=== PATIENT | female | born 1995 | race Caucasian/White ===

== ENCOUNTER 2023-05-22 07:57 | Outpatient (AMB) | payer OTHER, SELFPAY ==
--- NOTE | 2023-05-22 07:59 | MHC.OFFVIS ---
Intake Vital Signs 05/22/23 08:00 Weight 166 lb 6 oz BP 102/72 Blood Pressure Location Rt brachial Position Sitting Pulse 94 Pulse Source Pulse Oximeter Pulse Oximetry (%) 98 Oxygen Delivery Method Room Air Intake Visit Reasons: NPV: Syncope to R/O seizures-CONFIRMED Intake Note: Pt presents as a NPV for Syncope r/o seizures. New Car Inspector Required: No Accompanied by: Mother Allergies cat dander Allergy (Unknown, Verified 05/22/23 08:05) Unknown diphenhydramine [From Benadryl] Allergy (Unknown, Verified 05/22/23 08:05) Unknown Seasonal Allergies Allergy (Unknown, Verified 05/22/23 08:05) Unknown hay Allergy (Unknown, Uncoded 05/22/23 08:05) Unknown HPI HPI Comments History of Present Illness Details 27y/o female with Tourettes comes for evaluation of episodes of passing out. About 4 months ago she started having episodes of dizziness , episodes of passing out. it starts with feeling lightheaded, feels like her legs are giving out,feels warm , occasional palpitations and passes out.Her mother has witnessed a few episodes, says she becomes unresponsive and falls over . It can lasts seconds to few minutes. she is usually groggy and has headaches .No episodes of abnormal movements. she has 3-4 per week .In the beginning he was having multiple episodes a day.It is usually when she is standing or waking. Physical activity worsens it .she was diagnosed with Tourettes in her teens and has been seeing a psychiatrist since then . her motor TICS are poorly controlled. she is seeing a aircraft engine dismantler and was told she has orthostatic hypotension.she recently had 30 day monitor - has follow up. She also has chronic headaches- frontal pressure , bitemporal , photophobia phonophobia, nausea. she takes iibuprofen for severe headaches. she has 4-5 /week . she denies any aura. [facility] Medical History (Updated 05/22/23 @ 09:03 by Francoise Hoyos MD) Allergies Anxiety Borderline personality disorder Chronic migraine without aura Depression OCD (obsessive compulsive disorder) Panic attacks PTSD (post-traumatic stress disorder) Syncope Tourettes disease Family History Mother Breast cancer Maternal Grandfather Asthma Cancer Paternal Grandmother Cancer Father Hypertension Social History Alcohol intake: former Patient Tobacco Use Status: Former Tobacco user e-Cigarette/Vaping Use: Currently Using Review of Systems Const Reports fatigue, Reports headache(s) and Reports malaise ENT Reports dizziness and Reports headache(s) Neuro Reports dizziness and Reports headache(s) Psych Reports anxiety and Reports depression Endo Reports fatigue Physical Exam Vital Signs: Last Vital Signs Pulse 94 05/22/23 08:00 BP 102/72 05/22/23 08:00 Pulse Ox 98 05/22/23 08:00 Oxygen Delivery Method Room Air 05/22/23 08:00 Const General: cooperative, healthy appearing, comfortable and no acute distress Nutritional Appearance: average body habitus Orientation/consciousness: patient oriented x3 Eyes Pupils: Equal, round and reactive pupils present Neuro Other: motor TICS- frequent eye blinking , shoulder shrugging General: patient oriented x3, tone normal, moves all extremities and no focal motor deficits Cranial nerves: Yes Facial sensation intact/muscles of mastication intact, Yes Equal, round and reactive pupils present, Yes Bilaterally intact EOM present, Yes Nystagmus not present, Yes Normal facial strength present, Yes Midline tongue present and Yes Symmetric palate elevation present Cognition (Neuro): normal cognition Gait exam (Neuro): Normal gait present Motor exam (neuro): 5/5 motor strength present throughout and Normal motor muscle tone present throughout Deep tendon reflexes (DTR's): Right triceps reflex intensity grade: 2+, Left triceps reflex intensity grade: 2+, Rt Biceps (C5, C6): 2+, Left biceps reflex intensity grade: 2+, Right brachioradialis reflex intensity grade: 2+, Left brachioradialis reflex intensity grade: 2+, Right patellar reflex intensity grade: 2+ and Left patellar reflex intensity grade: 2+ Coordination: [id number] test normal Assessment & Plan Assessment & Plan (1) Syncope: Code(s): R55 - Syncope and collapse (2) Tourettes disease: Code(s): F95.2 - Tourette's disorder (3) Chronic migraine without aura: Code(s): G43.709 - Chronic migraine without aura, not intractable, without status migrainosus Plan I will evaluate her with MRI brain and EEG Continue risperdal 1mg qd and topirmata e100mg qhs for now. Orders: Orders MR head/brain wo con Today F95.2 - Tourette's disorder, R55 - Syncope and collapse EEG awake and asleep Today F95.2 - Tourette's disorder, R55 - Syncope and collapse Coding Level of Care Code New Pt Level 4 (79511) Diagnoses Syncope R55 Tourettes disease F95.2 Chronic migraine without aura G43.709
[2023-05-22 08:00] VITALS: BP 102/72; PULSE 94; O2SAT 98
== END 2023-05-22 08:38 | disposition home or self-care (01) ==
PROVIDERS: Visit Provider Psychiatry & Neurology Neurology
DX: R55 Syncope and collapse (principal); F95.2 Tourette's disorder; G43.709 Chronic migraine without aura, not intractable, without status migrainosus
CPT/HCPCS: 99204

== ENCOUNTER → 2023-05-22 07:57 | Outpatient (BNVA) | payer OTHER, SELFPAY | PROVIDERS: Visit Provider Psychiatry & Neurology Neurology | DX: R55 Syncope and collapse (principal); G43.709 Chronic migraine without aura, not intractable, without status migrainosus; F95.2 Tourette's disorder | CPT/HCPCS: 99202 ==

== ENCOUNTER 2023-07-11 10:20 | Outpatient (REF) | payer OTHER, SELFPAY ==
--- NOTE | ~2023-07-11 | MR_ITS ---
EXAMINATION: MR BRAIN WITHOUT CONTRAST CLINICAL INFORMATION: Syncope. COMPARISON: None available. TECHNIQUE: Multiplanar, multisequence imaging of the brain was performed without contrast. FINDINGS: No diffusion abnormalities are identified to suggest an acute or subacute infarct. The ventricles are normal in size. No mass effect or midline shift is seen. No brain parenchymal signal abnormality is noted. No extra-axial fluid collections are seen. The brainstem and cerebellum are normal. The gradient refocused acquisition is normal. The craniovertebral junction, marrow signal, and midline structures are normal. The major intracranial flow voids at the level of the [place] of [place] are preserved. The dural venous sinus flow voids are maintained. The mastoid air cells are well aerated. Small submucosal retention cyst noted along the roof of the nasopharynx to the left of midline. There is severe mucosal thickening with scattered fluid levels and aerosolized secretions in the left frontoethmoid sinuses anteriorly with complete mucosal opacification of the left maxillary sinus as well. Chronic mucoperiosteal thickening suspected in the left maxillary antrum. The remaining paranasal sinuses are well aerated. MR/MR head/brain wo con IMPRESSION: Normal MRI of the brain. No acute process. Severe left-sided ostiomeatal complex pattern of sinus disease with suspected chronic left maxillary mucoperiosteal thickening. It is indeterminate as to whether findings are due to an obstructing lesion in the left middle meatus or possibly due to an underlying odontogenic etiology. A CT scan of the paranasal sinuses is recommended in followup. Additionally, recommend ENT consultation to guide further management.
== END 2023-07-11 10:21 | disposition home or self-care (01) ==
LOC: HO.MRI 10:20
PROVIDERS: PCP Internal Medicine; Visit Provider Psychiatry & Neurology Neurology
DX: R55 Syncope and collapse (principal); F95.2 Tourette's disorder
CPT/HCPCS: 70551

== ENCOUNTER 2023-08-18 14:23 | Outpatient (AMB) | payer OTHER, SELFPAY ==
--- NOTE | 2023-08-18 14:33 | A.OFFVIS_ITS ---
Intake Vital Signs 08/18/23 14:40 Height 5 ft 5 in Weight 172 lb BMI 28.6 BP 96/70 Pulse 97 Pulse Oximetry (%) 98 Oxygen Delivery Method Room Air Intake Visit Reasons: 3m follow up Syncope to R/O seizures-LVM Extruding Machine Operator Required: No Accompanied by: Mother Allergies cat dander Allergy (Unknown, Verified 08/18/23 14:38) Unknown diphenhydramine [From Benadryl] Allergy (Unknown, Verified 08/18/23 14:38) Unknown Seasonal Allergies Allergy (Unknown, Verified 08/18/23 14:38) Unknown hay Allergy (Unknown, Uncoded 05/22/23 08:05) Unknown HPI HPI Comments History of Present Illness Details 28 y/o female with Tourettes comes for f ollow up of episodes of passing out. Brain MRI result was normal brain MRI. Pt reports the passing out episodes happens with feeling lightheaded,warm and leg weakness, her legs are giving out. Her mother has witnessed a few episodes, says she becomes unresponsive and falls over. It can happened multiple times a week, and it lasts seconds to few minutes. No episodes of abnormal movements. It is usually when she is standing or waking. Physical activity worsens it. She was diagnosed with Tourettes in her teens and has been seeing a psychiatrist since then. Pt was evaluated by home visitor and was told she has orthostatic hypotension. She recently had 30 day monitor, was told that no abnormal heart rhythm. EEG is pending, scheduled on . [facility] Medical History (Updated 05/22/23 @ 09:03 by Francoise Hoyos MD) Chronic migraine without aura Syncope Tourettes disease Anxiety Depression Panic attacks Allergies PTSD (post-traumatic stress disorder) OCD (obsessive compulsive disorder) Borderline personality disorder Family History Mother Breast cancer Maternal Grandfather Asthma Cancer Paternal Grandmother Cancer Father Hypertension Social History Alcohol intake: former Patient Tobacco Use Status: Former Tobacco user e-Cigarette/Vaping Use: Currently Using Review of Systems Const All systems reviewed & are unremarkable except as noted in HPI and below Physical Exam Vital Signs: Last Vital Signs Pulse 97 08/18/23 14:40 BP 96/70 11/17/23 14:40 Pulse Ox 98 08/18/23 14:40 Oxygen Delivery Method Room Air 08/18/23 14:40 BMI result Body Mass Index 28.6 Const General: cooperative, healthy appearing, comfortable and no acute distress Nutritional Appearance: average body habitus Orientation/consciousness: patient oriented x3 Eyes Pupils: Equal, round and reactive pupils present Neuro Other: motor TICS- frequent eye blinking , shoulder shrugging General: patient oriented x3, tone normal, moves all extremities and no focal motor deficits Cranial nerves: Yes Facial sensation intact/muscles of mastication intact, Yes Equal, round and reactive pupils present, Yes Bilaterally intact EOM present, Yes Nystagmus not present, Yes Normal facial strength present, Yes Midline tongue present and Yes Symmetric palate elevation present Cognition (Neuro): normal cognition Gait exam (Neuro): Normal gait present Motor exam (neuro): 5/5 motor strength present throughout and Normal motor muscle tone present throughout Deep tendon reflexes (DTR's): Right triceps reflex intensity grade: 2+, Left triceps reflex intensity grade: 2+, Rt Biceps (C5, C6): 2+, Left biceps reflex intensity grade: 2+, Right brachioradialis reflex intensity grade: 2+, Left brachioradialis reflex intensity grade: 2+, Right patellar reflex intensity grade: 2+ and Left patellar reflex intensity grade: 2+ Coordination: [id number]-[id number] test normal Assessment & Plan Assessment & Plan (1) Syncope: Code(s): R55 - Syncope and collapse (2) Tourettes disease: Code(s): F95.2 - Tourette's disorder (3) Chronic migraine without aura: Code(s): G43.709 - Chronic migraine without aura, not intractable, without status migrainosus Plan Advised patient to start keppra 250 mg BID, and monitor the syncope episodes. Continue risperdal 1mg qd and topirmata 100mg qhs. Advised patient to undergo EEG and will f/u of the result. Medications: New levetiracetam (Keppra) 250 mg PO BID 30 days 60 tabs 1RF Coding Level of Care Code Est Pt Level 3 (46715) Diagnoses Syncope R55 Tourettes disease F95.2 Chronic migraine without aura G43.709
[2023-08-18 14:40] VITALS: BP 96/70; PULSE 97; O2SAT 98; BMI 28.6
== END 2023-08-18 15:02 | disposition home or self-care (01) ==
PROVIDERS: PCP Internal Medicine; Visit Provider Nurse Practitioner Family
DX: R55 Syncope and collapse (principal); F95.2 Tourette's disorder; G43.709 Chronic migraine without aura, not intractable, without status migrainosus
CPT/HCPCS: 99213

== ENCOUNTER → 2023-08-18 14:23 | Outpatient (BNVA) | payer OTHER, SELFPAY | PROVIDERS: PCP Internal Medicine; Visit Provider Nurse Practitioner Family | DX: R55 Syncope and collapse (principal); F95.2 Tourette's disorder; G43.709 Chronic migraine without aura, not intractable, without status migrainosus | CPT/HCPCS: 99212 ==

== ENCOUNTER 2023-09-12 14:24 | Outpatient (REF) | payer OTHER, SELFPAY ==
--- NOTE | 2023-09-12 14:36 | EEG_ITS ---
This is a 16 channel EEG with an EKG lead. The patient is reported alert and awake during the tracing. Background EEG rhythm is low amplitude fast with no obvious asymmetry or paroxysmal tendency. Photic stimulation does not produce any significant abnormality. Hyperventilation is attempted for a minute with no significant abnormality. Cardiac lead does not reveal any significant abnormality. No definite sharp wave spikes or paroxysmal tendency noted. Some lead and muscle artifacts are noted. IMPRESSION: Unremarkable EEG. MD EDWARD Woodward/RANDELL / [id number]
== END 2023-09-12 14:25 | disposition home or self-care (01) ==
LOC: HO.NEURO 14:24
PROVIDERS: PCP Internal Medicine; Visit Provider Psychiatry & Neurology Neurology
DX: R55 Syncope and collapse (principal); F95.2 Tourette's disorder
CPT/HCPCS: 95816

== ENCOUNTER 2023-10-16 14:46 | Outpatient (AMB) | payer OTHER, SELFPAY ==
--- NOTE | 2023-10-16 14:51 | MHC.OFFVIS ---
Intake Vital Signs 10/16/23 15:15 Height 5 ft 5 in Weight 177 lb 8 oz BMI 29.5 BP 115/70 Blood Pressure Location Rt brachial Position Sitting Pulse 98 Pulse Oximetry (%) 97 Oxygen Delivery Method Room Air Intake Visit Reasons: 2 mnts f/u for syncope-Confirmed Intake Note: Patient presents for two month F/U syncope. EEG results and talk about medication Allergies cat dander Allergy (Unknown, Verified 10/16/23 15:17) Unknown diphenhydramine [From Benadryl] Allergy (Unknown, Verified 10/16/23 15:17) Unknown Seasonal Allergies Allergy (Unknown, Verified 10/16/23 15:17) Unknown hay Allergy (Unknown, Uncoded 05/22/23 08:05) Unknown HPI HPI Comments History of Present Illness Details 28 y/o female with Tourettes comes for follow up of episodes of passing out. No more episodes of black out since she started keppra 250 BID, but can have spacing out sometimes. She still getting dizzy spells when she does exercise. Pt was evaluated by tube machine operator helper and was told she has orthostatic hypotension. She recently had 30 day monitor, was told that no abnormal heart rhythm. Brain MRI result was normal brain MRI. Pt reports the passing out episodes happens with feeling lightheaded,warm and leg weakness, her legs are giving out. Her mother has witnessed a few episodes, says she becomes unresponsive and falls over. It can happened multiple times a week, and it lasts seconds to few minutes. No episodes of abnormal movements. EEG result was unremarkable. [facility] Medical History (Updated 08/23/23 @ 15:08 by Kyler Malhotra CNP) Chronic migraine without aura Syncope Tourettes disease Anxiety Depression Panic attacks Allergies PTSD (post-traumatic stress disorder) OCD (obsessive compulsive disorder) Borderline personality disorder Family History Mother Breast cancer Maternal Grandfather Asthma Cancer Paternal Grandmother Cancer Father Hypertension Social History Alcohol intake: former Patient Tobacco Use Status: Former Tobacco user e-Cigarette/Vaping Use: Currently Using Review of Systems Const All systems reviewed & are unremarkable except as noted in HPI and below Physical Exam Vital Signs: Last Vital Signs Pulse 98 10/16/23 15:15 BP 115/70 10/16/23 15:15 Pulse Ox 97 10/16/23 15:15 Oxygen Delivery Method Room Air 10/16/23 15:15 BMI result Body Mass Index 29.5 Const General: cooperative, healthy appearing, comfortable and no acute distress Nutritional Appearance: average body habitus Orientation/consciousness: patient oriented x3 Eyes Pupils: Equal, round and reactive pupils present Neuro Other: motor TICS- frequent eye blinking , shoulder shrugging General: patient oriented x3, tone normal, moves all extremities and no focal motor deficits Cranial nerves: Yes Facial sensation intact/muscles of mastication intact, Yes Equal, round and reactive pupils present, Yes Bilaterally intact EOM present, Yes Nystagmus not present, Yes Normal facial strength present, Yes Midline tongue present and Yes Symmetric palate elevation present Cognition (Neuro): normal cognition Gait exam (Neuro): Normal gait present Motor exam (neuro): 5/5 motor strength present throughout and Normal motor muscle tone present throughout Deep tendon reflexes (DTR's): Right triceps reflex intensity grade: 2+, Left triceps reflex intensity grade: 2+, Rt Biceps (C5, C6): 2+, Left biceps reflex intensity grade: 2+, Right brachioradialis reflex intensity grade: 2+, Left brachioradialis reflex intensity grade: 2+, Right patellar reflex intensity grade: 2+ and Left patellar reflex intensity grade: 2+ Coordination: [id number] test normal Assessment & Plan Assessment & Plan (1) Syncope: Code(s): R55 - Syncope and collapse (2) Tourettes disease: Code(s): F95.2 - Tourette's disorder (3) Chronic migraine without aura: Code(s): G43.709 - Chronic migraine without aura, not intractable, without status migrainosus Plan Advised patient to increase keppra 500 mg BID, and monitor the syncope or spacing out episodes. Continue risperdal 1mg qd and topirmata 100mg qhs. Continue to monitor the migraine frequency and intensity. Medications: New levetiracetam (Keppra) 500 mg PO BID 30 days 60 tabs 2RF Discontinued levetiracetam (Keppra) Discontinued Reason: Doctor's Order 250 mg PO BID 30 days 60 tabs 1RF Coding Level of Care Code Est Pt Level 4 (81842) Diagnoses Syncope R55 Tourettes disease F95.2 Chronic migraine without aura G43.708
[2023-10-16 15:15] VITALS: BP 115/70; PULSE 98; O2SAT 97; BMI 29.5
== END 2023-10-16 15:47 | disposition home or self-care (01) ==
PROVIDERS: PCP Internal Medicine; Visit Provider Nurse Practitioner Family
DX: R55 Syncope and collapse (principal); F95.2 Tourette's disorder; G43.709 Chronic migraine without aura, not intractable, without status migrainosus
CPT/HCPCS: 99214

== ENCOUNTER → 2023-10-16 14:46 | Outpatient (BNVA) | payer OTHER, SELFPAY | PROVIDERS: PCP Internal Medicine; Visit Provider Nurse Practitioner Family | DX: R55 Syncope and collapse (principal); F95.2 Tourette's disorder; G43.709 Chronic migraine without aura, not intractable, without status migrainosus | CPT/HCPCS: 99212 ==

== ENCOUNTER 2023-12-25 15:19 | Outpatient (REF) | payer OTHER, SELFPAY ==
--- NOTE | ~2023-12-25 | CT_ITS ---
EXAMINATION: CT SINUS WITH CONTRAST CLINICAL INFORMATION: Suspected left maxillary sinus disease on previous MRI of the brain. COMPARISON: 07/11/2023 MRI. TECHNIQUE: Volumetric CT imaging of the paranasal sinuses was done utilizing the intravenous administration of 85 mL of Omnipaque [address] examination was performed using dose optimization techniques as appropriate, variously including the following: *Automated exposure control *Adjustment of mA and/or kV according to patient size (this includes techniques or standardized protocols for targeted exams where dose is matched to indication/reason for exam; i.e. extremities or head) *Use of iterative reconstruction technique DLP: 97 mGy-cm. FINDINGS: NASAL CAVITY: Mild sigmoid nasal septal deviation to the right is noted, with a spur on the right, at the level of the middle meatus and inferior turbinate. There is deviation to the left more anterosuperiorly at the osteocartilaginous junction. The olfactory recesses are clear. There is soft tissue opacity in the region of the left hiatus semilunaris, which is nonspecific. No discrete nasal cavity masses. The visualized nasopharyngeal soft tissues demonstrate no abnormal enhancement. There is slightly asymmetric soft tissue density on the left side of the posterior nasopharynx, possibly reflecting an underlying retention cyst or Tornwaldt cyst. Correlate with direct visualization. MAXILLARY SINUSES: There is irregular thickening of the [place] of the left maxillary sinus, which is completely opacified and contains curvilinear foci of relative hyperdensity within it, suggesting inspissated, trapped secretions. There is some degree of osteoneogenesis at the periphery of the sinus cavity, consistent with chronic inflammatory disease. There is periapical radiolucency surrounding two adjacent left maxillary tooth roots, but there is no communication between this lucency and the floor of the left maxillary sinus. Correlate with dental examination. There are also carious changes involving the left last maxillary and mandibular molars and also involving the 2nd and 3rd right maxillary and mandibular molars. The right maxillary sinus is clear with a patent right OMC. The left OMC is occluded. ETHMOID SINUSES: There is some mucosal thickening within the anterior left ethmoid complex which is partially opacified, consistent with a left OMC pattern of disease. Remainder of the ethmoid complex is largely clear with intact orbital michael and fovea ethmoidalis. FRONTAL SINUSES: Minor mucosal thickening in the left frontal sinus, with patent drainage. Right frontal sinus is largely clear with patent drainage. SPHENOID SINUS: Well-pneumatized and clear with bilaterally patent sphenoid ostia and sphenoethmoidal recesses. Carotid canals are covered by bone. ADDITIONAL FINDINGS: Limited assessment of the included intracranial structures demonstrates no acute process. The orbital soft tissues appear bilaterally symmetric and grossly unremarkable. There are small, normal-sized bilateral IJ chain lymph nodes at the suprahyoid level. The visualized calvarium is intact. The mastoids and middle ear cavities are unopacified. CT/CT sinus w IV con IMPRESSION: 1. Findings on the left are consistent with chronic left maxillary sinus inflammatory disease with a left OMC pattern of disease. There is periapical radiolucency surrounding left maxillary tooth roots, but there is no communication between this lucency and the floor of the left maxillary sinus. Correlate with dental examination. 2. Mild mucosal thickening in the left frontal sinus and anterior left ethmoid complex, with a left OMC pattern of disease. Asymmetric soft tissue density in the region of the left hiatus semilunaris. Correlate with direct visualization. 3. Nasal septal deviation. 4. Asymmetric soft tissue density in the left side of the posterior nasopharynx, possibly reflecting an underlying retention cyst or Tornwaldt cyst. Correlate with direct visualization. 5. Multifocal carious findings of the maxillary and mandibular molars. Correlate with dental examination.
[2023-12-25] MEDS: iohexoL 350 MG/ML 100 ML INFUS..BTL 85 ML IV (15:48)
== END 2023-12-25 15:20 | disposition home or self-care (01) ==
LOC: HO.CT 15:19
PROVIDERS: Visit Provider Nurse Practitioner Family
DX: M89.38 Hypertrophy of bone, other site (principal); G43.709 Chronic migraine without aura, not intractable, without status migrainosus; T78.40XA Allergy, unspecified, initial encounter
CPT/HCPCS: 70487; Q9967

== ENCOUNTER 2023-12-29 10:16 | Outpatient (AMB) | payer OTHER, SELFPAY ==
--- NOTE | 2023-12-29 10:36 | A.OFFVIS_ITS ---
Intake Vital Signs 12/29/23 10:42 Height 5 ft 5 in Weight 188 lb 8 oz BMI 31.4 Blood Pressure Location Lt brachial Position Sitting Pulse 79 Pulse Source Pulse Oximeter Pulse Oximetry (%) 98 Oxygen Delivery Method Room Air Intake Visit Reasons: 2M follow up/ LVM Intake Note: Patient presents for 2 months f/u. Talk to provider about results and going back to work. Allergies cat dander Allergy (Unknown, Verified 12/29/23 10:41) Unknown diphenhydramine [From Benadryl] Allergy (Unknown, Verified 12/29/23 10:41) Unknown Seasonal Allergies Allergy (Unknown, Verified 12/29/23 10:41) Unknown hay Allergy (Unknown, Uncoded 05/22/23 08:05) Unknown HPI HPI Comments History of Present Illness Details 28 y/o female with Tourettes comes for f ollow up of episodes of passing out, seizure like episode. No more episodes of black out since she started keppra 250 BID. The last passing out happened at the end of August,. Keppra increased to 500 mg BID at the last visit. She is also takes topiramate 100 mg qHS for migraine prevention. Pt had one episode of spacing out, about 30 sec since the last visit. Pt's migraine has been improved with topiramate. Pt was evaluated by dry room attendant and was told she has orthostatic hypotension. She recently had 30 day monitor, was told that no abnormal heart rhythm. Brain MRI result was normal brain MRI. Pt reports the passing out episodes happens with feeling lightheaded,warm and leg weakness, her legs are giving out. EEG result was unremarkable. Pt does not drive or work at this time. ON LICENSE OF [facility] Medical History (Updated 12/31/23 @ 07:57 by Kyler Malhotra CNP) Chronic migraine without aura Syncope Tourettes disease Anxiety Depression Panic attacks Allergies PTSD (post-traumatic stress disorder) OCD (obsessive compulsive disorder) Borderline personality disorder Family History Mother Breast cancer Maternal Grandfather Asthma Cancer Paternal Grandmother Cancer Father Hypertension Social History Alcohol intake: former Patient Tobacco Use Status: Former Tobacco user e-Cigarette/Vaping Use: Currently Using Review of Systems Const All systems reviewed & are unremarkable except as noted in HPI and below Physical Exam Vital Signs: Last Vital Signs Pulse 79 12/29/23 10:42 Pulse Ox 98 12/29/23 10:42 Oxygen Delivery Method Room Air 12/29/23 10:42 BMI result Body Mass Index 31.4 Const General: cooperative, healthy appearing, comfortable and no acute distress Nutritional Appearance: average body habitus Orientation/consciousness: patient oriented x3 Eyes Pupils: Equal, round and reactive pupils present Neuro Other: motor TICS- frequent eye blinking , shoulder shrugging General: patient oriented x3, tone normal, moves all extremities and no focal motor deficits Cranial nerves: Yes Facial sensation intact/muscles of mastication intact, Yes Equal, round and reactive pupils present, Yes Bilaterally intact EOM present, Yes Nystagmus not present, Yes Normal facial strength present, Yes Midline tongue present and Yes Symmetric palate elevation present Cognition (Neuro): normal cognition Gait exam (Neuro): Normal gait present Motor exam (neuro): 5/5 motor strength present throughout and Normal motor muscle tone present throughout Deep tendon reflexes (DTR's): Right triceps reflex intensity grade: 2+, Left triceps reflex intensity grade: 2+, Rt Biceps (C5, C6): 2+, Left biceps reflex intensity grade: 2+, Right brachioradialis reflex intensity grade: 2+, Left brachioradialis reflex intensity grade: 2+, Right patellar reflex intensity grade: 2+ and Left patellar reflex intensity grade: 2+ Coordination: [id number] test normal Assessment & Plan Assessment & Plan (1) Syncope: Comment: or seizure? No more episodes of syncope with Keppra. Code(s): R55 - Syncope and collapse (2) Tourettes disease: Code(s): F95.2 - Tourette's disorder (3) Chronic migraine without aura: Code(s): G43.709 - Chronic migraine without aura, not intractable, without status migrainosus Plan Advised patient to increase keppra 700 mg BID, and monitor the syncope or spacing out episodes. Continue risperdal 1mg qd and topirmata 100mg qhs. Continue to monitor the migraine frequency and intensity. Medications: New levetiracetam (Keppra) Take keppra 250 mg BID along with keppra 500 mg BID. The total dosage of Keppra will be 750 mg BID. 250 mg PO BID 30 days 60 tabs 3RF Coding Level of Care Code Est Pt Level 4 (99705) Diagnoses Syncope R55 Tourettes disease F95.2 Chronic migraine without aura G43.709
[2023-12-29 10:42] VITALS: PULSE 79; O2SAT 98; BMI 31.4
== END 2023-12-29 11:09 | disposition home or self-care (01) ==
PROVIDERS: PCP Internal Medicine; Visit Provider Nurse Practitioner Family
DX: R55 Syncope and collapse (principal); F95.2 Tourette's disorder; G43.709 Chronic migraine without aura, not intractable, without status migrainosus
CPT/HCPCS: 99214

== ENCOUNTER → 2023-12-29 10:16 | Outpatient (BNVA) | payer OTHER, SELFPAY | PROVIDERS: PCP Internal Medicine; Visit Provider Nurse Practitioner Family | DX: F95.2 Tourette's disorder (principal); G43.709 Chronic migraine without aura, not intractable, without status migrainosus; R55 Syncope and collapse | CPT/HCPCS: 99212 ==

== ENCOUNTER 2024-06-19 12:36 | Outpatient (AMB) | payer OTHER, SELFPAY ==
[2024-06-19 12:59] VITALS: BP 110/72; BMI 32.6
--- NOTE | 2024-06-19 12:59 | A.OFFVIS_ITS ---
Vital Signs 06/19/24 12:59 Height 5 ft 5 in Weight 196 lb BMI 32.6 BP 110/72 Blood Pressure Location Rt brachial Position Sitting Intake Visit Reasons: Follow up Intake Note: Patient presents for follow up. Allergies cat dander Allergy (Unknown, Verified 06/19/24 13:02) Unknown diphenhydramine [From Benadryl] Allergy (Unknown, Verified 06/19/24 13:02) Unknown Seasonal Allergies Allergy (Unknown, Verified 06/19/24 13:02) Unknown hay Allergy (Unknown, Uncoded 06/19/24 13:02) Unknown Medication List - Last Reconciled 06/19/24 by Kanchan Kincaid, JIMMIE albuterol sulfate 90 mcg/actuation (Ventolin HFA) inhalation escitalopram oxalate mg PO ibuprofen 200 mg PO Q6H PRN levetiracetam (Keppra) 250 mg PO BID 30 days levetiracetam (Keppra) 500 mg PO BID 30 days loratadine 10 mg PO DAILY lorazepam 0.5 mg PO DAILY ondansetron 4 mg PO Q8H PRN pantoprazole 20 mg PO DAILY risperidone 1 mg PO BEDTIME topiramate 50 - 100 mg PO BEDTIME HPI Comments Details: 28-yr-old female presents for f/u visit of syncopal and spacing out episodes. Pt was previously seen by our former colleague, Kyler Malhotra NP. Pt denies any significant interval medical changes. Since, she started Keppra the spacing out and syncopal episodes have improved and has not had either in many months. Pt reports her last spacing out episode was ~8 months ago and her last syncopal episode was almost 1 yr ago. She would like to return to work. Today, she states that the spacing out episodes started prior to the syncopal episodes. A few times was f/b a brief crying episode. She is taking salt water. Will make sure she drinks Gatorade or salt water when showering. She is just occasionally lightheaded upon standing- only if she has stood very quickly and had not drank enough salt water. The syncopal episodes were stereotypic- started with feeling lightheaded, feels like her legs are giving out, feels warm, occasional palpitations and passes out. Her mother has witnessed a few episodes, says she becomes unresponsive and falls over. It can lasts seconds to few minutes. Afterwards, she is usually groggy and has headaches, and legs feel weak- like jello. She has a couple of migraines per week, but has been a bit better recently. Using Ibuprofen helps- not 100% but for a few hrs, and may need to repeat dose. She is generally photophobic. Baseline headache characteristics: frontal pressure, bridge of nose, bitemporal a/w photophobia phonophobia, nausea. The follwo-up sinus CT did show sinus inflammation, most notable in left maxillary sinus. Pt denies left upper teeth or sinus pain. States has a h/o ear infections, sinus infections, and poor dental health. CT/CT sinus w IV con IMPRESSION: 1. Findings on the left are consistent with chronic left maxillary sinus inflammatory disease with a left O[facility] pattern of disease. There is periapical radiolucency surrounding left maxillary tooth roots, but there is no communication between this lucency and the floor of the left maxillary sinus. Correlate with dental examination. 2. Mild mucosal thickening in the left frontal sinus and anterior left ethmoid complex, with a left O[facility] pattern of disease. Asymmetric soft tissue density in the region of the left hiatus semilunaris. Correlate with direct visualization. 3. Nasal septal deviation. 4. Asymmetric soft tissue density in the left side of the posterior nasopharynx, possibly reflecting an underlying retention cyst or Tornwaldt cyst. Correlate with direct visualization. 5. Multifocal carious findings of the maxillary and mandibular molars. Correlate with dental examination. [facility] Medical History Chronic migraine without aura Syncope Tourettes disease Anxiety Depression Panic attacks Allergies PTSD (post-traumatic stress disorder) OCD (obsessive compulsive disorder) Borderline personality disorder Family History Mother Breast cancer Maternal Grandfather Asthma Cancer Paternal Grandmother Cancer Father Hypertension Social History Alcohol intake: former Patient Tobacco Use Status: Former Tobacco user e-Cigarette/Vaping Use: Currently Using Physical Exam Vital Signs: Last Vital Signs BP 110/72 06/19/24 12:59 BMI result Body Mass Index 32.6 Const General: cooperative and no acute distress Orientation/consciousness: patient oriented x3 Resp Effort & Inspection: normal respiratory effort and able to speak in complete sentences Neuro Other: Mild intermittent motor tics- of head/neck General: patient oriented x3 Cranial nerves: Yes CN's II-XII intact bilaterally Cognition (Neuro): normal cognition Psych Appearance: grossly normal Mental Status: mental status grossly normal Speech and movement: Clear speech present Affect: normal affect Attitude: cooperative Assessment & Plan Assessment & Plan (1) Syncope: Comment: or ? seizure. No more episodes of syncope with Keppra. Code(s): R55 - Syncope and collapse Category: Medical (2) AMS (altered mental status): Comment: Brief 200-30 seconds of spacing out- resolved on starting Keppra. Code(s): R41.82 - Altered mental status, unspecified Category: Medical (3) Migraine without aura: Code(s): G43.009 - Migraine without aura, not intractable, without status migrainosus Category: Medical (4) Abnormal CT scan, sinus: Code(s): R93.0 - Abnormal findings on diagnostic imaging of skull and head, not elsewhere classified Category: Medical Plan For h/o syncope and spacing out episodes: Continue Keppra 750mg bid. Continue increased fluids, salt, sports drink intake. Take fluid bolus before showering. Stand slowly Pt may return to work w/o restriction.. For migraine w/o aura: Information shared on non-pharmacological tx's for migraine-0 inclearing migarine specific blue light filtering classes. Trial Sumatriptan 100mg tab, 1/2 - 1 tab (50-100mg) at onset of headache, may repeat in 2 hours. Max of 2 tabs (200mg) per 24 hours. May adjunct with OTC Tylenol 650mg q 4 hours, Ibuprofen 600mg q 6 hours, or Naproxen 440mg q [address] sinus: Pt advised to have ENT consult. Advised to seek medical attention if she develops fever, dental pain,new face pain or headache. Pt to follow-up in 6 months or sooner prn. Orders: Referrals Ear/Nose/Throat Referral G43.009 - Migraine without aura, not intractable, without status migrainosus, M89.38 - Hypertrophy of bone, other site, R93.0 - Abnormal findings on diagnostic imaging of skull and head, not elsewhere classified Medications: New sumatriptan succinate (0.5 - 1 x 100 mg) 50 - 100 mg orally at onset of headache, may repeat in 2 hrs PRN; max 2 tabs per day or 4 tabs/week (may take with Ibuprofen) 30 days 12 tabs 6RF migraine headache Refilled levetiracetam (Keppra) Take keppra 250 mg BID along with keppra 500 mg BID. The total dosage of Keppra will be 750 mg BID. 250 mg PO BID 30 days 60 tabs 6RF levetiracetam (Keppra) 500 mg PO BID 30 days 60 tabs 6RF Coding Level of Care Code Est Pt Level 4 (25856) Diagnoses Syncope R55 AMS (altered mental status) R41.82 Migraine without aura G43.[address] scan, sinus R93.0
== END 2024-06-19 13:59 | disposition home or self-care (01) ==
PROVIDERS: PCP Internal Medicine; Visit Provider Nurse Practitioner Family
DX: R55 Syncope and collapse (principal); R41.82 Altered mental status, unspecified; G43.009 Migraine without aura, not intractable, without status migrainosus; R93.0 Abnormal findings on diagnostic imaging of skull and head, not elsewhere classified
CPT/HCPCS: 99214

== ENCOUNTER → 2024-06-19 12:36 | Outpatient (BNVA) | payer OTHER, SELFPAY | PROVIDERS: PCP Internal Medicine; Visit Provider Nurse Practitioner Family | DX: R55 Syncope and collapse (principal); R41.82 Altered mental status, unspecified; G43.009 Migraine without aura, not intractable, without status migrainosus; R93.0 Abnormal findings on diagnostic imaging of skull and head, not elsewhere classified | CPT/HCPCS: 99212 ==

== ENCOUNTER 2024-12-31 15:27 | Outpatient (AMB) | payer OTHER, SELFPAY ==
--- NOTE | 2024-12-31 15:30 | A.OFFVIS_ITS ---
Vital Signs 12/31/24 15:31 Height 5 ft 5 in Weight 186 lb BMI 30.9 BP 104/80 Blood Pressure Location Rt brachial Position Sitting Intake Visit Reasons: Follow Up Intake Note: Patient presents follow up Migraine medication. ENT booked 01/23/25 Allergies cat dander Allergy (Unknown, Verified 12/31/24 15:35) Unknown diphenhydramine [From Benadryl] Allergy (Unknown, Verified 12/31/24 15:35) Unknown Seasonal Allergies Allergy (Unknown, Verified 12/31/24 15:35) Unknown hay Allergy (Unknown, Uncoded 12/31/24 15:35) Unknown Medication List - Last Reconciled 12/31/24 by JIMMIE Beatty albuterol sulfate 90 mcg/actuation (Ventolin HFA) inhalation escitalopram oxalate mg PO ibuprofen 200 mg PO Q6H PRN levetiracetam (Keppra) 250 mg PO BID 30 days levetiracetam (Keppra) 500 mg PO BID 30 days loratadine 10 mg PO DAILY lorazepam 0.5 mg PO DAILY ondansetron 4 mg PO Q8H PRN pantoprazole 20 mg PO DAILY risperidone 1 mg PO BEDTIME sodium chloride 1,000 mg PO BID 30 days sumatriptan succinate 50 - 100 mg orally at onset of headache, may repeat in 2 hrs PRN; max 2 tabs per day or 4 tabs/week (may take with Ibuprofen) 30 days tirzepatide (weight loss) (Zepbound) 2.5 mg subcut QWEEK topiramate 50 - 100 mg PO BEDTIME HPI Comments Details: History of Present Illness The patient is a 29-year-old female presenting for follow-up of migraine, syncopal and spacing out episodes. Patient reports she had not had a syncopal episode in a while. However, she has had recurrent syncope episodes, often with shaking, lasting seconds. The epsiodes started again in November, with 10-11 episodes. Then in November, the episodes increased, now occurs almost daily, with dizziness and pre-syncopal sensations. Shakes during episodes, different from past panic-related shaking. 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 Past evaluations include an abnormal CT sinuses, EEG, and tilt-table test. Medications: Keppra 750 mg twice daily. She was usiing OTC salt tabs- but stopped as she was not sure she should- though was helpful. Medications intermittently used due to insurance include Zepbound, resumed week prior. Fluid intake limited to 40-60 oz daily. Salt intake challenged. Review of Systems - Neurological: Reports dizziness, grogginess post-syncope, shaking episodes - General: Denies dehydration but acknowledges reduced fluid intake - Psychological: Reports stress related to job and wedding planning 06/19/24 HPI: 29-yr-old female presents for f/u visit of migraine, syncopal and spacing out episodes. Patient is accompanied by her friend. Pt denies any significant interval medical changes. Pt reports she has again, starting in November- has had increased episodes are a/w body shaking. Occurs not daily, but becoming more frequent, 1-2 times in a day- at times a/w shaking (has happened in the past w/ panic attacks but not syncope). The episode usually is lasting a few seconds. Afterwards, she feels groggy and her limbs do not want to move well. Pt reports prior to this, she started having episodes of feeling like near- syncope, but she did not actually have syncope. In Nov, she had 10-11 episodes. In November, she had 28 episodes. She also can feel lightheaded when she sits on the toilet, and can have near syncope while having a BM. She started Wegovy approx 6 months, and then was switched to Zepbound a few months ago d/t isnuramce issues- she has been on/off and now on the zepbound again. Drinks at least 2 20oz gatorade, 1 ? 16oz bottle water, 1 6-20oz- coffee or 12 oz soda a day. States she has ok with her salt intake. But notes that lynne had bought her 1 g salt tabs online, which he was taking, however stopped as she was unsure exactly how much salt she needed to be taking. States that cardiology had not given her of firm diagnosis, but had encouraged her to increase her fluid and salt take- again without a set goal. Pt has stopped driving due to having these syncopal episodes, and thus has not been working in the last month. Was working in customer service. She has continued on Keppra. She has not had labs in quite some time. She endorses history of anemia. States previous tilt table test was inconclusive though she did have syncope during the test- unfortunately we cannot find full report today. Patient states has had just a few occasional migraines, did not try sumatriptan yet, as she misplaced it. She has ENT initial consult coming up-to evaluate previous sinus CT findings. 06/19/24 HPI: Today, she states that the spacing out episodes started prior to the syncopal episodes. A few times was f/b a brief crying episode. She is taking salt water. Will make sure she drinks Gatorade or salt water when showering. She is just occasionally lightheaded upon standing- only if she has stood very quickly and had not drank enough salt water. The syncopal episodes were stereotypic- started with feeling lightheaded, feels like her legs are giving out, feels warm, occasional palpitations and passes out. Her mother has witnessed a few episodes, says she becomes unresponsive and falls over. It can lasts seconds to few minutes. Afterwards, she is usually groggy and has headaches, and legs feel weak- like jello. She has a couple of migraines per week, but has been a bit better recently. Using Ibuprofen helps- not 100% but for a few hrs, and may need to repeat dose. She is generally photophobic. Baseline headache characteristics: frontal pressure, bridge of nose, bitemporal a/w photophobia phonophobia, nausea. The follow-up sinus CT did show sinus inflammation, most notable in left maxillary sinus. Pt denies left upper teeth or sinus pain. States has a h/o ear infections, sinus infections, and poor dental health. CT/CT sinus w IV con IMPRESSION: 1. Findings on the left are consistent with chronic left maxillary sinus inflammatory disease with a left OMC pattern of disease. There is periapical radiolucency surrounding left maxillary tooth roots, but there is no communication between this lucency and the floor of the left maxillary sinus. Correlate with dental examination. 2. Mild mucosal thickening in the left frontal sinus and anterior left ethmoid complex, with a left OMC pattern of disease. Asymmetric soft tissue density in the region of the left hiatus semilunaris. Correlate with direct visualization. 3. Nasal septal deviation. 4. Asymmetric soft tissue density in the left side of the posterior nasopharynx, possibly reflecting an underlying retention cyst or Tornwaldt cyst. Correlate with direct visualization. 5. Multifocal carious findings of the maxillary and mandibular molars. Correlate with dental examination. [facility] Medical History Chronic migraine without aura Syncope Tourettes disease Anxiety Depression Panic attacks Allergies PTSD (post-traumatic stress disorder) OCD (obsessive compulsive disorder) Borderline personality disorder Family History Mother Breast cancer Maternal Grandfather Asthma Cancer Paternal Grandmother Cancer Father Hypertension Social History Alcohol intake: former Patient Tobacco Use Status: Former Tobacco user e-Cigarette/Vaping Use: Currently Using Physical Exam Vital Signs: Last Vital Signs BP 104/80 12/31/24 15:31 BMI result Body Mass Index 30.9 Const General: cooperative and no acute distress Orientation/consciousness: patient oriented x3 Resp Effort & Inspection: normal respiratory effort and able to speak in complete sentences Neuro Other: Mild intermittent motor tics- of head/neck General: patient oriented x3 Cranial nerves: Yes CN's II-XII intact bilaterally Cognition (Neuro): normal cognition Psych Appearance: grossly normal Mental Status: mental status grossly normal Speech and movement: Clear speech present Affect: normal affect Attitude: cooperative Assessment & Plan Assessment & Plan (1) Syncope: Comment: or ? seizure. No more episodes of syncope with Keppra. Code(s): R55 - Syncope and collapse Category: Medical (2) Anxiety: Code(s): F41.9 - Anxiety disorder, unspecified Category: Medical (3) AMS (altered mental status): Comment: Brief 20-30 seconds of spacing out- resolved on starting Keppra. Code(s): R41.82 - Altered mental status, unspecified Category: Medical (4) Migraine without aura: Code(s): G43.009 - Migraine without aura, not intractable, without status migrainosus Category: Medical (5) Abnormal CT scan, sinus: Code(s): R93.0 - Abnormal findings on diagnostic imaging of skull and head, not elsewhere classified Category: Medical Plan Discussion Notes We discussed the recurrence of syncope and its impact on her daily life, considering the influence of stress and medication effects, notably Keppra and Zepbound reducing appetite. I advised maintaining a diary of syncope episodes detailing frequency and associated symptoms. We talked about the importance of monitoring fluid and salt intake due to possible links with syncopal episodes, as dehydration can contribute to these events. Recommendations include continued observation of medication effects in case they exacerbate the symptoms. We also emphasized the impact of lifestyle stressors, advising methods of stress management. There was no change in Keppra dosage. Discussed follow-up if symptoms persist or worsen. Plan Continue Keppra 750 mg BID, assess syncope and shaking diary. Monitor fluid and salt intake. Observe for Zepbound influence. Reduce stress. Assess if syncope persists. Schedule follow-ups for ongoing evaluation. Patient was informed and verbally consented to the use of an ambient scribe for clinic note documentation during this visit. Plan and Patient Instructions For syncope and spacing out episodes: Check labs for common etiologies. Continue Keppra 750mg bid. Continue increased fluids, sports drink intake. Take fluid bolus before showering. Increase sodium intake, we will supplement with sodium chloride tablet 1 mg b.i.d. or can take as half tab q.i.d. Ensure adequate dietray intake as well. Stand slowly Information shared on slowly increasing physical activity to improve standing and shower tolerance, such as the chop protocol used in the pots population. Monitor and keep a diary of syncopal episodes and associated factors/symptoms. Patient to abstain from driving and work at this time. For migraine w/o aura: Information previously shared on non-pharmacological tx's for migraine- such as migraine specific blue light filtering classes. Again trial Sumatriptan 100mg tab, 1/2 - 1 tab (50-100mg) at onset of headache, may repeat in 2 hours. Max of 2 tabs (200mg) per 24 hours. May adjunct with OTC Tylenol 650mg q 4 hours, Ibuprofen 600mg q 6 hours, or Naproxen 440mg q [address] sinus: ENT consult as scheduled. Advised to seek medical attention if she develops fever, dental pain,new face pain or headache. Pt to follow-up in 6 months or sooner prn. Orders: Orders Complete Blood Count Auto Diff 12/31/24 R55 - Syncope and collapse, F41.9 - Anxiety disorder, unspecified, D64.9 - Anemia, unspecified IRON PROFILE 12/31/24 R55 - Syncope and collapse, F41.9 - Anxiety disorder, unspecified, D64.9 - Anemia, unspecified Vitamin B12 and Folate 12/31/24 R55 - Syncope and collapse, F41.9 - Anxiety disorder, unspecified, D64.9 - Anemia, unspecified Folate 12/31/24 R55 - Syncope and collapse, F41.9 - Anxiety disorder, unspecified, D64.9 - Anemia, unspecified TSH reflex Free T4 12/31/24 R55 - Syncope and collapse, F41.9 - Anxiety disorder, unspecified, D64.9 - Anemia, unspecified Vitamin D 25-OH (D2 and D3) 12/31/24 R55 - Syncope and collapse, F41.9 - Anxiety disorder, unspecified, D64.9 - Anemia, unspecified Methylmalonic Acid 12/31/24 R55 - Syncope and collapse, F41.9 - Anxiety disorde r, unspecified, D64.9 - Anemia, unspecified Comprehensive Met. Panel 12/31/24 R55 - Syncope and collapse, F41.9 - Anxiety disorder, unspecified, D64.9 - Anemia, unspecified Ferritin 12/31/24 R55 - Syncope and collapse, F41.9 - Anxiety disorder, unspecified, D64.9 - Anemia, unspecified Homocysteine 12/31/24 R55 - Syncope and collapse, F41.9 - Anxiety disorder, unspecified, D64.9 - Anemia, unspecified Medications: New sodium chloride 1,000 mg PO BID 60 tabs 3RF 30 days Refilled levetiracetam (Keppra) Take keppra 250 mg BID along with keppra 500 mg BID. The total dosage of Keppra will be 750 mg BID. 250 mg PO BID 60 tabs 6RF 30 days levetiracetam (Keppra) 500 mg PO BID 60 tabs 6RF 30 days Coding Level of Care Code Est Pt Level 4 (13566) Diagnoses Syncope R55 Anxiety F41.9 AMS (altered mental status) R41.82 Migraine without aura G43.[address] scan, sinus R93.0
[2024-12-31 15:31] VITALS: BP 104/80; BMI 30.9
--- OUTSIDE RECORDS SUMMARY | 2024-12-31 18:23 | XMS_ITS | Encounter Summary ---
Author Organization [facility] Address [address] [place] [address] Care Team Providers Care Proposal Consultant Name Role Phone Meagan Sharpe MD Primary Care Prov ider Reason for Visit * Reason Onset Date Comments Medication Problem 12/18/2024 Encounter Details Date Type Department Care Team ([facility] st Contact Info) Description 12/18/2024 Telephone Adult Medicine - [place] [address] [place] [phone] Meagan Sharpe MD [address] [place] [id number] Medication Problem Social History Tobacco Use Types Packs/Day Years Used Date Smoking Tobacco: Some Days Cigarettes Smokeless Tobacco: Never Alcohol Use Standard Drinks/Week Comments Yes 0 (1 standard drink = 0.6 oz pur e alcohol) Comments No Sex and Gender Information Value Date Recorded Sex Assigned at Not on file Legal Sex Female 4:46 AM EST Gender Identity Not on file Sexual Orientation Not on file documented as of this encounter Progress Notes * Pilar Hughes MA - 12/25/2024 7:57 AM EDT Prior authorization for the zepbound was approved Approved from 12/23/24 until 05/25/25 Authorization case approval number [id number] Approval faxed to [facility] [phone] Exceeding quantity limits for the same dosage was also approved Approved from 12/24/24 until 01/24/25 Authorization approval number # [id number] Also faxed to [facility] * Pilar Hughes MA - 12/23/2024 3:48 PM EDT Prior authorization for the zepbound was completed today on the phone with Sheryl from [facility] obesity Restarting 2.5 because of side effects Requesting docs. Faxed today * Karen Terry LPN - 12/18/2024 4:53 PM EDT Spoke with patient and advised her we have not yet received the Authorization and she can request to have pharmacy send it again. I gave her 2 fax numbers, she will check back on this at a later date * Lor Bland - 12/18/2024 3:14 PM EDT Pt returning missed call. * Karen Terry LPN - 12/18/2024 2:11 PM EDT Message left on unverified voice mail for patient to return call We have not yet received Prior Authorization Zepbound does usually require dose increases to be covered * Dariela Dennison - 12/18/2024 12:04 PM EDT Medication Problem: What is the name of the medication patient is having a problem with?: tirzepatide, weight loss, (Zepbound) 2.5 mg/0.5 mL injection What is the problem?: Patient is calling needs a PA, she states pharmacy informed her they have been sending PA request to office, is asking if this has been received Who is calling about the problem? : The patient Is this a NEW medication?: yes How long has the patient been taking this medication? 12/13/24 Who prescribed this medication for the patient? BILLIE Gonzalez Who is patients PCP?: Meagan Sharpe MD Payor: [employer] PLAN / Plan: [employer] / Product Type: *No Product type* / documented in this encounter Plan of Treatment Upcoming Encounters Date Type Department Care Team (Late st Contact Info) Description 04/30/2025 11:15 AM EDT Office Visit Adult Medicine - [place] [address] [place] [phone] Clementine Muñoz PA [address] [place] [address] documented as of this encounter Visit Diagnoses Not on filedocumented in this encounter Care Teams Proposal Consultant Relationship Specialty Start Date End Date Meagan Sharpe MD [address] [place] [address] PCP - General Internal Medicine 08/21/15 documented as of this encounter
--- OUTSIDE RECORDS SUMMARY | 2024-12-31 18:23 | XMS_ITS ---
Author Name [facility] Organization Unknown History of Medication Use Medication Directions Dispensed Refills Start Date End Date Stat topiramate (TOPAMAX) 50 MG tablet 12/18/2022 active escitalopram (LEXAPRO) 10 MG tablet escitalopram 10 mg tablet TAKE 1 TABLET BY MOUTH ONCE A DAY active loratadine (CLARITIN) 10 MG tablet loratadine 10 mg tablet TAKE 1 TABLET BY MOUTH EVERY DAY active buPROPion (WELLBUTRIN SR) 100 MG 12 hr tablet 12/23/2022 active Problems Problem Status Onset Date Problem Type Date of Resoluti on Source Syncope, unspecified syncope type active EncounterDiagnosisAct CCT Encounters Encounter Type Encounter Reason Primary Diagnosis Location Date Ambulatory Syncope and collapse Syncope and collapse [facility] 12/30/2022 Care Team Organization Name Specialty Phone Email Start Date End Da te [facility] 12/30/2022 12/30/2022 [facility] 12/30/2022 [facility]
--- OUTSIDE RECORDS SUMMARY | 2024-12-31 18:23 | XMS_ITS | Clinical Summary ---
Author Organization [facility] Address [address] [place] [address] Care Team Providers Care Stove Cleaner Name Role Phone Unknown Primary Care Provider [phone] Allergies Active Allergy Reactions Criticality Noted Date Comments Diphenhydramine Other (See Comments) 12/30/2022 Sleeps for days/ Memory loss Medications Medication Sig Dispensed Refills Start Date End Date Status buPROPion (WELLBUTRIN SR) 100 MG 12 hr tablet 12/23/2022 Active escitalopram (LEXAPRO) 10 MG tablet escitalopram 10 mg tablet TAKE 1 TABLET BY MOUTH ONCE A DAY Active loratadine (CLARITIN) 10 MG tablet loratadine 10 mg tablet TAKE 1 TABLET BY MOUTH EVERY DAY Active PANTOprazole (PROTONIX) 20 MG tablet pantoprazole 20 mg tablet,delayed release Active topiramate (TOPAMAX) 50 MG tablet 12/18/2022 Active risperiDONE (RisperDAL) 1 MG tablet 12/18/2022 Active Active Problems No known active problems Social History Tobacco Use Types Packs/Day Years Used Date Smoking Tobacco: Never Assessed Sex and Gender Information Value Date Recorded Sex Assigned at Not on file Gender Identity Not on file Sexual Orientation Not on file Last Filed Vital Signs Vital Sign Reading Time Taken Comments Blood Pressure 102/72 12/30/2022 2:04 PM EDT Pulse 69 12/30/2022 2:04 PM EDT Temperature 37.1 ??C (98.7 ??F) 12/30/2022 2:04 PM ED T Respiratory Rate - - Oxygen Saturation 98% 12/30/2022 2:48 PM EDT Inhaled Oxygen Concentration - - Weight - - Height 165.1 cm (5' 5 ) 12/30/2022 2:04 PM EDT Body Mass Index - - Plan of Treatment Health Maintenance Due Date Last Done Comments Hepatitis C Virus Screening 1996 HIV Screening 2009 DTaP/Tdap/Td Vaccines (1 - Tdap) 2015 Hepatitis B Vaccines (1 of 3 - 19+ 3-dose series) 2015 Pap Smear (Ages 21-65) 2017 Influenza Vaccine 05/02/2024 COVID-19 Vaccine (2023-2 5 season) 2024 HPV Vaccines Aged Out No longer eligi ble based on patient's age to complete this topic Pneumococcal Vaccine: Pediat sung (0-5 Years) and At-Risk Patients (6 to 49 Years) Aged Out No longer eligible b ased on patient's age to complete this topic Care Teams Stove Cleaner Relationship Specialty Start Date End Date Unknown Unknow Provider Address PCP - General 10/02/22
--- OUTSIDE RECORDS SUMMARY | 2024-12-31 18:23 | XMS_ITS | Clinical Summary ---
Author Organization [facility] [address] [facility] l[address] Address [address] [place] [address] Phone Care Team Providers Care Green Meat Grader Name Role Phone Meagan Sharpe MD Primary Care Prov ider Allergies Active Allergy Reactions Criticality Noted Date Comments Cat Dander 10/12/2015 Other Reaction(s): Runny Nose/Rhinitis ichiness Diphenhydramine 12/30/2022 Other reaction(s): Other (See Comments) Sleeps for days/ Memory loss Diphenhydramine Hcl 06/19/2018 Extreme lathargy Lavender Oil Nausea And Vomiting 02/14/2019 ichiness Levonorgestrel-Ethinyl Estrad 07/12/2023 Other Hives 10/12/2015 Seasonal Allergies Hay Medications levETIRAcetam (KEPPRA) 500 mg tablet Take 1 tablet (500 mg total) by mouth 2 (two) times a day. 11/14/19 24 Active LORazepam (ATIVAN) 0.5 mg tablet Take 1 tablet (0.5 mg total) by mouth 1 (one) time each day if needed. 09/11/20 23 Active risperiDONE (RisperDAL) 0.5 mg tablet Take 1 tablet (0.5 mg total) by mouth 1 (one) time each day. 11/06/19 24 Active topiramate (TOPAMAX) 50 mg tablet Take 2 tablets (100 mg total) by mouth 2 (two) times a day. 2 pills at night- oral Active albuterol HFA (PROAIR HFA ; PROVENTIL HFA ; VENTOLIN HFA) 90 mcg/actuation inhaler Inhale 2 Puffs into the lungs every 4 hours as needed for Cough or Wheezing 12/05/19 24 Active escitalopram (LEXAPRO) 20 mg tablet Take 1 tablet (20 mg total) by mouth 1 (one) time each day. 06/29/20 23 Active risperiDONE (RisperDAL) 1 mg tablet Take 1 tablet (1 mg total) by mouth at bedtime. 06/16/20 23 Active ibuprofen (IBU) 400 mg tablet Take 1 tablet (400 mg total) by mouth 4 (four) times a day if needed. Active lidocaine (XYLOCAINE) 5 % ointment Apply 0.5 g topically as needed (Apply 0.5 g topically as needed (pain). apply to affected area 3-4xday as needed for pain up to 10 days) for up to 360 days. - Topical Active pantoprazole (PROTONIX) 20 mg EC tablet TAKE 1 TABLET BY MOUTH EVERY DAY 90 tablet 1 09/03/20 24 Active loratadine (CLARITIN) 10 mg tablet TAKE 1 TABLET BY MOUTH 1 TIME EACH DAY. 90 tablet 10/28/19 25 Active ondansetron ODT (ZOFRAN-ODT) 4 mg disintegrating tablet Take 1 tablet (4 mg total) by mouth every 8 (eight) hours if needed for nausea. 20 tablet 1 10/30/19 25 Active levETIRAcetam (KEPPRA) 250 mg tablet TAKE 1 TABLET BY MOUTH TWICE A DAY WITH 500 MG 10/20/19 25 Active tirzepatide, weight loss, (ZEPBOUND) 5 mg/0.5 mL injection Inject 0.5 mL (5 mg total) under the skin every 7 (seven) days. 2 mL 2 11/18/19 25 Active tirzepatide, weight loss, (Zepbound) 2.5 mg/0.5 mL solution Inject 2.5 mg under the skin every 7 (seven) days. 2 mL 12/12/19 25 Active tirzepatide, weight loss, (Zepbound) 2.5 mg/0.5 mL injection Inject 0.5 mL (2.5 mg total) under the skin every 7 (seven) days. 2 mL 12/14/19 25 Active tirzepatide, weight loss, (Zepbound) 2.5 mg/0.5 mL solution Inject 2.5 mg under the skin every 7 (seven) days. For 4 weeks then increase to 5mg weekly 2 mL 1 10/30/19 25 025 Discontin ued(Reord er) Active Problems Problem Noted Date Diagnosed Date Irritable bowel syndrome 10/30/2024 Chronic sinusitis 07/03/2024 Syncope 03/22/2023 Overview (07/03/2024): Last Assessment & Plan: The patient has been having episodes of syncope. She reports that she has had many episodes of these events. She did complete an ROCT monitor in May which showed sinus rhythm with an average heart rate of 79 bpm with occasional PACs and PVCs with PVC burden of 0.8%. There were no sustained arrhythmias noted and the patient reports she had many episodes of syncope while she was wearing the monitor. She also completed an exercise stress test which showed no arrhythmias during exercise protocol and no ischemic EKG changes with exercise. Echocardiogram completed April 2023 showed normal LV function and no hemodynamically significant valve disease. She also completed a tilt table test which did not show evidence of POTS and the patient had an unexplained apparent episode of syncope with no significant change in her heart rate or blood pressure. On today's visit, we discussed these results in depth. She is not orthostatic in the office today. We discussed that given she had these episodes of syncope while she was wearing her night monitor, her episodes are not related to any significant cardiac arrhythmias. She will continue to follow with her neurologist closely. She recently completed a brain MRI and she has an appointment to follow-up with her neurologist Dr. Crespo this month. She is planning on completing an EEG as well. Borderline personality disorder 08/27/2018 OCD (obsessive compulsive disorder) 08/27/2018 PTSD (post-traumatic stress disorder) 08/27/2018 Seasonal allergies 12/15/2015 Panic attacks 08/31/2015 Severe major depression 09/30/2013 Anxiety 08/15/2013 Tourette syndrome 06/12/2013 Overview (07/03/2024): Has seen Dr. Sutton, is on a headachemedication which also helps TICS. Will also be seeing a feedback type therapist for the tics Encounters Date Type Department Care Team Description 12/18/2024 Telephone Adult [address] [phone] Meagan Sharpe MD Medication Problem 12/06/2024 3:00 PM EST Office Visit Adult [address] [phone] Clementine Muñoz PA Irritable bowel syndrome, unspecified type (Primary Dx); Seizures (CMS/HCC); Severe major depression (CMS/HCC); Tourette syndrome; Panic attacks; PTSD (post-traumatic stress disorder); Obsessive-compulsive disorder, unspecified type; Borderline personality disorder (CMS/HCC); Anxiety; BMI 31.0-31.9,adult 11/22/2024 10:00 AM EST Office Visit Adult [address] [phone] Nora Mayen MD Nausea and vomiting, unspecified vomiting type (Primary Dx); Abdominal cramps; Anxiety; Medication side effect 11/20/2024 Telephone Adult [address] [phone] Meagan Sharpe MD URI 10/30/2024 12:00 PM EST Office Visit Adult [address] [phone] Clementine Muñoz PA BMI 31.0-31.9,adult (Primary Dx); Anxiety; Borderline personality disorder (CMS/HCC); Obsessive-compulsive disorder, unspecified type; PTSD (post-traumatic stress disorder); Panic attacks; Seasonal allergies; Tourette syndrome; Severe major depression (CMS/HCC); Seizures (CMS/HCC); Irritable bowel syndrome, unspecified type from Last 3 Months Immunizations Name Administration Dates Next Due DTaP (Infanrix) 6wks to less than 7yo ,01/20/1998,02/19/1997,12/25,1996 [id number] (Pentacel) 2mo to less than 5yo 10/21/1997,02/19/1997,1996,10/11 H1N1 Inj Preservative Free 09/03/2009 HPV, Quadrivalent 10/20/2009,06/02/2009,03/31/20 09 Hepatitis B Pediatric (Enger ix B; Recombivax HB) to less than 20 yo 02/19/1997,1996,1996 IPV Inactivated polio (Ipol) 6wks and older 01/16/2007,10/05/2000,01/01/1997,09/23 Influenza trivalent, with pr eservative (Fluzone; Afluria) 6mo and older 08/17/2005 MMR, measles mumps and rubel la Live (Priorix; M-M-R II) 12mo and older 10/11/2001,10/21/1997 Meningococcal MCV4P 08/20/2013,03/25/2009 Polio, Unspecified 03/07/2005 Tdap Tetanus diptheria acell ular pertussis (Boostrix; Adacel) 7yo and older 03/25/2009 Varicella live (Varivax) 12m o and older 03/25/2009,08/05/1997 Surgical History Surgery Date Site/Laterality Comments OTHER SURGICAL HISTORY PROCEDURE: DENIES PREVIOUS SURGERY Medical History Medical History Date Comments Closed dislocation of should er, unspecified site DX:Closed dislocation of dina ulder, unspecified site; COMMENT: Fx ankle 04/10/09 DX:Fx ankle; COM MENT: salter 1 right distal Family History Medical History Relation Name Comments Asthma Maternal Grandfather Other cancer Maternal Grandfather lymphom a Allergies Mother ENVIRONMENTAL Other cancer Mother brain= 04/10 Lung cancer Paternal Grandmother Relation Name Status Comments Father Alive 02/03/66 Maternal Grandfather Mother (Age age 41) Breast CA 2009 Paternal Grandmother Social History Tobacco Use Types Packs/Day Years Used Date Smoking Tobacco: Some Days Cigarettes Smokeless Tobacco: Never Tobacco Cessation:Ready to Q uit: Not Asked; Counseling Given: Yes Alcohol Use Standard Drinks/Week Comments Yes 0 (1 standard drink = 0.6 oz pur e alcohol) Comments No Sex and Gender Information Value Date Recorded Sex Assigned at Not on file Legal Sex Female 4:46 AM EST Gender Identity Not on file Sexual Orientation Not on file Obstetrics History Last Filed Vital Signs Vital Sign Reading Time Taken Comments Blood Pressure 90/60 12/06/2024 2:59 PM EST Pulse 121 12/06/2024 2:59 PM EST Temperature 36.7 ??C (98 ??F) 12/06/2024 2:59 PM EST Respiratory Rate - - Oxygen Saturation - - Inhaled Oxygen Concentration - - Weight 85.7 kg (189 lb) 12/06/2024 2:59 PM EST Height 165.2 cm (5' 5.04 ) 11/22/2024 9:58 AM ES T Body Mass Index 31.41 11/22/2024 9:58 AM EST Plan of Treatment Upcoming Encounters Date Type Department Care Team (Late st Contact Info) Description 04/30/2025 11:15 AM EDT Office Visit Adult Medicine - [place] [address] [place] [phone] Clementine Muñoz PA [address] [place] [address] Health Maintenance Due Date Last Done Comments Pneumococcal Vaccine: Pediatrics (0 to 5 Years) and At-Risk Patients (6 to 64 Years) (1 of 2 - PCV) 2015 Cervical Cancer Screening: Pap Smear 2017 DTaP,Tdap,and Td Vaccines (7 - Td or Tdap) 03/25/2019 03/25/2009, 10/11/2001, 01/20/1998, Additional history exists Cholesterol Screening (Lipid Panel) 09/10/2022 02/05/2013 Social Influencers of Health Screening 09/10/2022 COVID-19 Vaccine ( season) 2024 03/30/2021, 03/02/2021 Influenza Vaccine (Season Ended) 2025 09/03/2009, 08/17/2005 Depression Screening 06/11/2025 06/11/2024 Hepatitis B Vaccines Completed 02/19/1997, 1996, 1996 HIB Vaccines Completed 10/21/1997, 10/03, 02/19/1997, Additional history exists MMR Vaccines Completed 10/11/2001, 10/21/1997 IPV Vaccines Completed 01/16/2007, 03/2005, 10/05/2000, Additional history exists Varicella Vaccines Completed 03/25/2009, 08/05/1997 HPV Vaccines Completed 10/20/2009, 10/2008, 03/31/2009 Meningococcal ACWY Vaccine Completed 08/20/2013, HIV Screening Completed 06/22/2016 Hepatitis C Screening Completed 06/22/2016 Hepatitis A Vaccines Aged Out No long er eligible based on patient's age to complete this topic Meningococcal B Vacine Aged Out No lo nger eligible based on patient's age to complete this topic RSV Immunization Patients Under 20 months Aged Out No longer eligible based on patient's age to complete this topic Procedures Procedure Name Priority Date/Time Associated Diagnosis Comments DEPRESSION SCREENING Routine 06/11/2024 HEPATITIS C SCREENING Routine 06/22/2016 HIV SCREENING Routine 06/22/2016 LIPID PANEL Routine 02/05/2013 from Last 3 Months or Most Recently Relevant to Health Maintenance Results * Depression Screening (06/11/2024) Pathologist [facility] Depression Screening abstracted Result [facility] Provider HEALTH MAINTENANCE Final Result * HIV Screening (06/22/2016) [facility] HIV Screening abstracted Result [facility] Provider HEALTH MAINTENANCE Final Result * Hepatitis C Screening (06/22/2016) [facility] Hepatitis C Screening abstracted Result [facility] Provider HEALTH MAINTENANCE Final Result * Lipid panel (02/05/2013) [facility] LDL/HDL Ratio 3 0 - 4 Triglycerides 82 0 - 150 mg/dL Cholesterol 150 0 - 200 mg/dL HDL 55 >=40 mg/dL LDL Cholesterol 79 0 - 100 mg/dL Blood Venous blood specimen / Unknown Result [facility] Provider LAB BLOOD ORDERABLES Theresa l Result from Last 3 Months or Most Recently Relevant to Health Maintenance Insurance [facility] [employer] Care Teams Green Meat Grader Relationship Specialty Start Date End Date Meagan Sharpe MD [address] [place] [id number] PCP - General Internal Medicine 08/21/15
== END 2024-12-31 16:33 | disposition home or self-care (01) ==
LOC: HO.HSMS 15:28
PROVIDERS: Visit Provider Nurse Practitioner Family
DX: R55 Syncope and collapse (principal); F41.9 Anxiety disorder, unspecified; R41.82 Altered mental status, unspecified; G43.009 Migraine without aura, not intractable, without status migrainosus; R93.0 Abnormal findings on diagnostic imaging of skull and head, not elsewhere classified
CPT/HCPCS: 99214

== ENCOUNTER → 2024-12-31 15:27 | Outpatient (BNVA) | payer OTHER, SELFPAY | PROVIDERS: Visit Provider Nurse Practitioner Family | DX: G43.009 Migraine without aura, not intractable, without status migrainosus (principal); R55 Syncope and collapse; R41.82 Altered mental status, unspecified; F41.9 Anxiety disorder, unspecified; R93.0 Abnormal findings on diagnostic imaging of skull and head, not elsewhere classified | CPT/HCPCS: 99212 ==

== ENCOUNTER 2025-07-08 15:15 | Outpatient (AMB) | payer OTHER, SELFPAY ==
--- NOTE | 2025-07-08 15:55 | A.OFFVIS_ITS ---
Vital Signs 07/08/25 15:56 Height 5 ft 5 in Weight 186 lb BMI 30.9 BP 80/60 L Blood Pressure Location Lt brachial Position Sitting Pulse 102 H Pulse Source Pulse Oximeter Pulse Oximetry (%) 100 Oxygen Delivery Method Room Air Intake Visit Reasons: 6mon follow-up Manager Banking Required: No Allergies cat dander Allergy (Unknown, Verified 07/08/25 15:59) Unknown diphenhydramine (From Benadryl) Allergy (Unknown, Verified 07/08/25 15:59) Unknown Seasonal Allergies Allergy (Unknown, Verified 07/08/25 15:59) Unknown hay Allergy (Unknown, Uncoded 12/31/24 15:35) Unknown Medication List - Last Reconciled 07/08/25 by JIMMIE Beatty albuterol sulfate 90 mcg/actuation (Ventolin HFA) inhalation cholecalciferol (vitamin D3) PO escitalopram oxalate mg PO ibuprofen 200 mg PO Q6H PRN levetiracetam (Keppra) 250 mg PO BID 30 days levetiracetam (Keppra) 500 mg PO BID 30 days loratadine 10 mg PO DAILY lorazepam 0.5 mg PO .PRN ondansetron 4 mg PO Q8H PRN pantoprazole 20 mg PO DAILY risperidone 2 mg PO BID sumatriptan succinate 50 - 100 mg orally at onset of headache, may repeat in 2 hrs PRN; max 2 tabs per day or 4 tabs/week (may take with Ibuprofen) 30 days tirzepatide (weight loss) (Zepbound) 15 mg subcut QWEEK topiramate 50 - 100 mg PO BEDTIME HPI Comments Details: 29-year-old female presenting for follow-up of migraine, syncopal and spacing out episodes. Patient is accompanied by her (they got about a week ago). She reports she is passing out approximately 2-3 x's per week. The week before last, she passed out 3 days in a row. At best she can go 8-9 days between passing out. This is typically triggered around 10-11pm, and often but not always occurring after showering and tub bathing even with drinking fluids before and after bathing. She generally wakes up around 11am and goes to bed around 11pm. She stopped the salt tabs, as it caused GI discomfort. She is taking 56 ounces of fluid per day, including Gatorade, plus 8 oz fluid for showering. She notes that she does not like the taste of artificial sweeteners or [place]. She is compliant with Keppra. She continues on Zepbound, which she is overall tolerating well other than some GI upset when she takes a dose. She denies any other interval medical history or medication changes. She reports that her migraines are stable. 12/31/2024, HPI: Patient reports she had not had a syncopal episode in a while. However, she has had recurrent syncope episodes, often with shaking, lasting seconds. The epsiodes started again in November, with 10-11 episodes. Then in November, the episodes increased, now occurs almost daily, with dizziness and pre-syncopal sensations. Shakes during episodes, different from past panic-related shaking. 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 Medications: Keppra 750 mg twice daily. She was usiing OTC salt tabs- but stopped as she was not sure she should- though was helpful. Medications intermittently used due to insurance include Zepbound, resumed week prior. Fluid intake limited to 40-60 oz daily. Salt intake challenged. 06/19/24 HPI: 29-yr-old female presents for f/u visit of migraine, syncopal and spacing out episodes. Patient is accompanied by her friend. Pt denies any significant interval medical changes. Pt reports she has again, starting in November- has had increased episodes are a/w body shaking. Occurs not daily, but becoming more frequent, 1-2 times in a day- at times a/w shaking (has happened in the past w/ panic attacks but not syncope). The episode usually is lasting a few seconds. Afterwards, she feels groggy and her limbs do not want to move well. Pt reports prior to this, she started having episodes of feeling like near- syncope, but she did not actually have syncope. In Nov, she had 10-11 episodes. In November, she had 28 episodes. She also can feel lightheaded when she sits on the toilet, and can have near syncope while having a BM. She started Wegovy approx 6 months, and then was switched to Zepbound a few months ago d/t insurance issues- she has been on/off and now on the zepbound again. Drinks at least 2 20oz gatorade, 1 ? 16oz bottle water, 1 6-20oz- coffee or 12 oz soda a day. States she has ok with her salt intake. But notes that lynne had bought her 1 g salt tabs online, which he was taking, however stopped as she was unsure exactly how much salt she needed to be taking. States that cardiology had not given her of firm diagnosis, but had encouraged her to increase her fluid and salt take- again without a set goal. Pt has stopped driving due to having these syncopal episodes, and thus has not been working in the last month. Was working in customer service. She has continued on Keppra. She has not had labs in quite some time. She endorses history of anemia. States previous tilt table test was inconclusive though she did have syncope during the test- unfortunately we cannot find full report today. Patient states has had just a few occasional migraines, did not try sumatriptan yet, as she misplaced it. She has ENT initial consult coming up-to evaluate previous sinus CT findings. 06/19/24 HPI: Today, she states that the spacing out episodes started prior to the syncopal episodes. A few times was f/b a brief crying episode. She is taking salt water. Will make sure she drinks Gatorade or salt water when showering. She is just occasionally lightheaded upon standing- only if she has stood very quickly and had not drank enough salt water. The syncopal episodes were stereotypic- started with feeling lightheaded, feels like her legs are giving out, feels warm, occasional palpitations and passes out. Her mother has witnessed a few episodes, says she becomes unresponsive and falls over. It can lasts seconds to few minutes. Afterwards, she is usually groggy and has headaches, and legs feel weak- like jello. She has a couple of migraines per week, but has been a bit better recently. Using Ibuprofen helps- not 100% but for a few hrs, and may need to repeat dose. She is generally photophobic. Baseline headache characteristics: frontal pressure, bridge of nose, bitemporal a/w photophobia phonophobia, nausea. The follow-up sinus CT did show sinus inflammation, most notable in left maxillary sinus. Pt denies left upper teeth or sinus pain. States has a h/o ear infections, sinus infections, and poor dental health. CT/CT sinus w IV con IMPRESSION: 1. Findings on the left are consistent with chronic left maxillary sinus inflammatory disease with a left OMC pattern of disease. There is periapical radiolucency surrounding left maxillary tooth roots, but there is no communication between this lucency and the floor of the left maxillary sinus. Correlate with dental examination. 2. Mild mucosal thickening in the left frontal sinus and anterior left ethmoid complex, with a left OMC pattern of disease. Asymmetric soft tissue density in the region of the left hiatus semilunaris. Correlate with direct visualization. 3. Nasal septal deviation. 4. Asymmetric soft tissue density in the left side of the posterior nasopharynx, possibly reflecting an underlying retention cyst or Tornwaldt cyst. Correlate with direct visualization. 5. Multifocal carious findings of the maxillary and mandibular molars. Correlate with dental examination. [facility] Medical History Chronic migraine without aura Syncope Tourettes disease Anxiety Depression Panic attacks Allergies PTSD (post-traumatic stress disorder) OCD (obsessive compulsive disorder) Borderline personality disorder Family History Mother Breast cancer Maternal Grandfather Asthma Cancer Paternal Grandmother Cancer Father Hypertension Social History Alcohol intake: former Patient Tobacco Use Status: Former Tobacco user e-Cigarette/Vaping Use: Currently Using Physical Exam Vital Signs: Last Vital Signs Pulse 102 H 07/08/25 15:56 BP 80/60 L 07/08/25 15:56 Pulse Ox 100 07/08/25 15:56 Oxygen Delivery Method Room Air 07/08/25 15:56 BMI result Body Mass Index 30.9 Const General: cooperative and no acute distress Orientation/consciousness: patient oriented x3 Resp Effort & Inspection: normal respiratory effort and able to speak in complete sentences Neuro Other: Mild intermittent motor tics- of head/neck General: patient oriented x3 Cranial nerves: Yes CN's II-XII intact bilaterally Cognition (Neuro): normal cognition Psych Appearance: grossly normal Mental Status: mental status grossly normal Speech and movement: Clear speech present Affect: normal affect Attitude: cooperative Assessment & Plan Assessment & Plan (1) Syncope: Comment: Syncopal episodes initially reduced with initiation of Keppra, however despite compliance on Keppra, patient continues to have syncopal episodes. Code(s): R55 - Syncope and collapse Category: Medical Qualifiers: Syncope type: unspecified Qualified Code(s): R55 - Syncope and collapse (2) Anxiety: Code(s): F41.9 - Anxiety disorder, unspecified Category: Medical (3) AMS (altered mental status): Comment: Brief 20-30 seconds of spacing out- resolved on starting Keppra. Code(s): R41.82 - Altered mental status, unspecified Category: Medical Qualifiers: Altered mental status type: transient alteration of awareness Qualified Code(s): R40.4 - Transient alteration of awareness (4) Migraine without aura: Code(s): G43.009 - Migraine without aura, not intractable, without status migrainosus Category: Medical Qualifiers: Intractability: not intractable Status migrainosus presence: without status migrainosus Qualified Code(s): G43.009 - Migraine without aura, not intractable, without status migrainosus (5) Abnormal CT scan, sinus: Code(s): R93.0 - Abnormal findings on diagnostic imaging of skull and head, not elsewhere classified Category: Medical (6) Orthostatic hypotension: Code(s): I95.1 - Orthostatic hypotension Category: Medical Plan For syncope and spacing out episodes: Reviewed interval labs, which were notable for vitamin-D deficiency, low norm ferritin 12, slightly elevated glucose 127; with normal B12, folate, methylmalonic acid, homocystine, CBC, and BUN/creatinine and LFTs. We will recheck levels. Discontinue the sodium chloride tablet, as this was not tolerated. Start fludrocortisone 0.1 mg daily in the morning, hold for BP > 140/90 Continue Keppra 750mg bid. Continue to increase fluid intake, including sports drinks. Take 8-12 fluid oz bolus before showering. Try to increase dietary sodium intake. Ensure adequate dietary intake as well. Stand slowly Information previously shared on slowly increasing physical activity to improve standing and shower tolerance, such as the chop protocol used in the POTS population. Monitor and keep a diary of syncopal episodes and associated factors/symptoms. Patient to abstain from driving and work at this time. For migraine w/o aura: Information previously shared on non-pharmacological tx's for migraine- such as migraine-specific blue light filtering classes. Again, try Sumatriptan 100mg tab, 1/2 - 1 tab (50-100mg) at the onset of headache, may repeat in 2 hours. Max of 2 tabs (200mg) per 24 hours. May be adjuncted with OTC Tylenol 650mg q 4 hours, Ibuprofen 600mg q 6 hours, or Naproxen 440mg q 12 hrs as needed. For abnormal CT sinus: ENT consult as scheduled. Seek medical attention if she develops fever, dental pain, new facial pain, or headache. Patient advised to call us in 1 month with an update Patient to follow up in 6 months or sooner as needed. Medications: New fludrocortisone 0.1 mg PO DAILY 30 tabs 3RF 30 days I95.1 - Orthostatic hypotension Coding Level of Care Code Est Pt Level 4 (32802) Diagnoses Syncope, unspecified syncope type R55 Syncope type: unspecified Anxiety F41.9 Transient alteration of awareness R40.4 Altered mental status type: transient alteration of awareness Migraine without aura and without status migrainosus, not intractable G43.009 Intractability: not intractable Status migrainosus presence: without status migrainosus Abnormal CT scan, sinus R93.0 Orthostatic hypotension I95.1
[2025-07-08 15:56] VITALS: BP 80/60; PULSE 102; O2SAT 100; BMI 30.9
--- OUTSIDE RECORDS SUMMARY | 2025-07-08 18:28 | XMS_ITS | Clinical Summary ---
Author Organization Formerly [facility] Address [address] [place] [id number] Care Team Providers Care Psych Nurse Name Role Phone Unknown Primary Care Provider [phone] Allergies Active Allergy Reactions Criticality Noted Date Comments Diphenhydramine Other (See Comments) 12/30/2022 Sleeps for days/ Memory loss Medications buPROPion (WELLBUTRIN SR) 100 MG 12 hr tablet 3 Active escitalopram (LEXAPRO) 10 MG tablet escitalopram 10 mg tablet TAKE 1 TABLET BY MOUTH ONCE A DAY Active loratadine (CLARITIN) 10 MG tablet loratadine 10 mg tablet TAKE 1 TABLET BY MOUTH EVERY DAY Active PANTOprazole (PROTONIX) 20 MG tablet pantoprazole 20 mg tablet,delayed release Active topiramate (TOPAMAX) 50 MG tablet 3 Active risperiDONE (RisperDAL) 1 MG tablet 3 Active Active Problems No known active problems Social History Tobacco Use Types Packs/Day Years Used Date Smoking Tobacco: Never Assessed Comments Unknown Sex and Gender Information Value Date Recorded Sex Assigned at Not on file Legal Sex Female 1:50 PM EDT Gender Identity Not on file Sexual Orientation Not on file Last Filed Vital Signs Vital Sign Reading Time Taken Comments Blood Pressure 102/72 12/30/2022 2:04 PM EDT Pulse 69 12/30/2022 2:04 PM EDT Temperature 37.1 C (98.7 F) 12/30/2022 2:04 PM EDT Respiratory Rate - - Oxygen Saturation 98% [...] Pap Smear (Ages 21-65) 2017 Influenza Vaccine 05/02/2025 COVID-19 Vaccine (1 - 2023-2 5 season) 2025 HPV Vaccines (No Doses Required) Completed Pneumococcal Vaccine: Pediat sung (0-5 Years) and At-Risk Patients (6 to 49 Years) Aged Out No longer eligible b ased on patient's age to complete this topic Care Teams Psych Nurse Relationship Specialty Start Date End Date Unknown Unknow Provider Address PCP - General 10/02/22
--- OUTSIDE RECORDS SUMMARY | 2025-07-08 18:28 | XMS_ITS ---
Author Name [facility] Organization Unknown History of Medication Use Medication Directions Dispensed Refills Start Date End Date Stat us buPROPion (WELLBUTRIN SR) 100 MG 12 hr tablet 12/23/2022 active risperiDONE (RisperDAL) 1 MG tablet 12/18/2022 active topiramate (TOPAMAX) 50 MG tablet 12/18/2022 active escitalopram (LEXAPRO) 10 MG tablet escitalopram 10 mg tablet TAKE 1 TABLET BY MOUTH ONCE A DAY active loratadine (CLARITIN) 10 MG tablet loratadine 10 mg tablet TAKE 1 TABLET BY MOUTH EVERY DAY active PANTOprazole (PROTONIX) 20 MG tablet pantoprazole 20 mg tablet,delayed release active Allergies Allergen Reaction Severity Comment Documented Date Source Statu s DIPHENHYDRAMINE OTHER (SEE COMMENTS) Sleeps for days/ Memory loss 12/30/2022 [facility] active Problems Problem Status Onset Date Problem Type Date of Resoluti on Source Syncope, unspecified syncope type active EncounterDiagnosisAct CCT Encounters Encounter Type Encounter Reason Primary Diagnosis Location Date Ambulatory Syncope and collapse Syncope and collapse [facility] 12/30/2022 Care Team Organization Name Specialty Phone Email Start Date End Da te [facility] 12/30/2022 12/30/2022 [facility] 12/30/2022 [facility] 08/09/2022 05/20/2024 [facility] ([facility]
--- OUTSIDE RECORDS SUMMARY | 2025-07-08 18:28 | XMS_ITS | Clinical Summary ---
Author Organization [facility] [address] [facility] Address [address] [place] [address] Phone Care Team Providers Care Lumber Planer Name Role Phone Meagan Sharpe MD Primary [...] (one) time each day. 11/06/19 24 Active albuterol HFA (PROAIR HFA ; PROVENTIL [...] up to 360 days. - Topical Active levETIRAcetam (KEPPRA) 250 mg tablet TAKE 1 TABLET BY MOUTH TWICE A DAY WITH 500 MG 10/20/19 25 Active topiramate (TOPAMAX) 50 mg tablet Take 2 tablets (100 mg total) by mouth 2 (two) times a day. 2 pills at night- oral 90 tablet 1 01/15/20 25 Active pantoprazole (PROTONIX) 20 mg EC tablet TAKE 1 TABLET BY MOUTH EVERY DAY 90 tablet 04/08/20 25 Active tirzepatide, weight loss, (Zepbound) 12.5 mg/0.5 mL injection Inject 0.5 mL (12.5 mg total) under the skin every 7 (seven) days. 2 mL 04/23/20 25 Active loratadine (CLARITIN) 10 mg tablet TAKE 1 TABLET BY MOUTH 1 TIME EACH DAY. 90 tablet 04/28/20 25 Active sodium chloride 1,000 mg soluble tablet Take 1 tablet (1 g total) by mouth 2 (two) times a day. Active ondansetron ODT (ZOFRAN-ODT) 4 mg disintegrating tablet Take 1 tablet (4 mg total) by mouth every 8 (eight) hours if needed for nausea. 20 tablet 4 04/30/20 25 Active tirzepatide, weight loss, (Zepbound) 15 mg/0.5 mL injectionIndicatio ns:Overweight Inject 0.5 mL (15 mg total) under the skin every 7 (seven) days. 2 mL 1 05/30/20 25 Active ergocalciferol (VITAMIN D-2) 1,250 mcg (50,000 unit) capsule Take 1 capsule (50,000 Units total) by mouth 1 (one) time per week. For 16 weeks then take a daily over the counter vitamin d supplement 8033-2407 units daily to keep this up 16 capsule 05/01/20 25 025 Active Problems Problem Noted Date Diagnosed Date Vitamin D deficiency 05/01/2025 Other hyperlipidemia 05/01/2025 Overweight 04/30/2025 Irritable bowel syndrome 10/30/2024 Chronic sinusitis 07/03/2024 [...] of syncope while she was wearing her monitor worker, her episodes are not related to any significant cardiac arrhythmias. She will continue to follow with her neurologist closely. She recently completed a brain MRI and she has an appointment to follow-up with her neurologist Dr. Crespo this month. She is planning on completing an EEG as well. Borderline personality disorder ([facility] V24, S/[facility] V28) 08/27/2018 OCD (obsessive compulsive disorder) 08/27/2018 PTSD (post-traumatic stress disorder) 08/27/2018 Seasonal allergies 12/15/2015 Panic attacks 08/31/2015 Severe major depression ([facility] V24, [facility] V2 8) 09/30/2013 Anxiety 08/15/2013 Tourette syndrome 06/12/2013 Overview (07/03/2024): Has seen Dr. Sutton, is on a headachemedication which also helps TICS. Will also be seeing a feedback type therapist for the tics Encounters Date Type Department Care Team Description 05/13/2025 2:55 PM EDT - 05/13/2025 11:59 PM EDT Hospital Encounter Ultrasound - [address] [phone] Thyroid enlargement Discharge Disposition: Home or Self Care 05/01/2025 Telephone Adult Medicine - [address] [address] Zachariah Sterling MA 04/30/2025 12:15 PM EDT Lab Draw Station - [address] [phone] Routine general medical examination at a health care facility; Vitamin D deficiency; Iron deficiency anemia, unspecified iron deficiency anemia type 04/30/2025 11:15 AM EDT Office Visit Adult Medicine [address] [phone] Clementine Muñoz PA Routine general medical examination at a health care facility (Primary Dx); Overweight; Impaired fasting glucose; Vitamin D deficiency; Iron deficiency anemia, unspecified iron deficiency anemia type; Chronic sinusitis, unspecified location; Thyroid enlargement; Skin exam, screening for cancer; Seizures (CMS/HCC V24, CMS/HCC V28); Severe major depression (CMS/HCC V24, CMS/HCC V28); Tourette syndrome; Panic attacks; PTSD (post-traumatic stress disorder); Obsessive-compulsive disorder, unspecified type; Borderline personality disorder (CMS/HCC V24, CMS/HCC V28); Anxiety from Last 3 Months Immunizations Immunization Administration Dates Next Due DTaP (Infanrix) 6wks to less than 7yo ,01/20/1998,02/19/1997,12/25,1996 [id number] (Pentacel) 2mo to less than 5yo 10/21/1997,02/19/1997,1996,10/11 [...] Grandfather Mother (Age age 41) Breast CA 2010 Paternal Grandmother Social History Tobacco Use Types [...] Sign Reading Time Taken Comments Blood Pressure 90/70 04/30/2025 11:15 AM EDT Pulse 98 04/30/2025 11:15 AM EDT Temperature 36.3 C (97.3 F) 04/30/2025 11:15 AM EDT Respiratory Rate 12 04/30/2025 11:15 AM EDT Oxygen Saturation - - Inhaled Oxygen Concentration - - Weight 75.1 kg (165 lb 9.6 oz) 04/30/2025 11:15 AM EDT Height 167.6 cm (5' 6 ) 04/30/2025 11:15 AM EDT Body Mass Index 26.73 04/30/2025 11:15 AM EDT Plan of Treatment Upcoming Encounters Date Type Department Care Team (Late st Contact Info) Description 08/04/2025 3:00 PM EST Office Visit Adult Medicine - [place] [address] [place] [address] Clementine Muñoz PA [address] [place] [address] Health Maintenance Due Date Last Done Comments Pneumococcal Vaccine: Pediatrics (0 to 5 Years) and At-Risk Patients (6 to 49 Years) (1 of 2 - PCV) 2015 Cervical Cancer Screening: Pap Smear 2017 DTaP,Tdap,and Td Vaccines (7 - Td or Tdap) 03/25/2019 03/25/2009, 10/11/2001, 01/20/1998, Additional history exists Social Influencers of Health Screening 09/10/2022 Depression Screening 10/02/2024 06/11/2024 COVID-19 Vaccine ( - season) 2025 03/30/2021, 03/02/2021 Influenza Vaccine (#1) 2025 09/03/2009, 2004 Cholesterol Screening (Lipid Panel) 04/30/2030 04/30/2025, 02/05/2013 RSV Immunization Adult Patients (1 - 1-dose 75+ series) 2071 Hepatitis B Vaccines Completed 02/19/1997, 1996, 1996 [...] age to complete this topic Meningococcal B Vaccine Aged Out No l onger eligible based on patient's age to complete this topic RSV Immunization Patients Under 20 months Aged Out No longer eligible based on patient's age to complete this topic Procedures Procedure Name Priority Date/Time Associated Diagnosis Comments US HEAD NECK SOFT TISSUE Routine 05/13/2025 3:14 PM EDT Thyroid enlargement CBC WITH AUTO DIFFERENTIAL Routine 04/30/2025 12:14 PM EDT Iron deficiency anemia, unspecified iron deficiency anemia type COMPREHENSIVE METABOLIC PANEL Routine 04/30/2025 12:14 PM EDT Routine general medical examination at a health care facility CBC AND DIFFERENTIAL Routine 04/30/2025 12:14 PM EDT Iron deficiency anemia, unspecified iron deficiency anemia type IRON AND TIBC Routine 04/30/2025 12:13 PM EDT Iron deficiency anemia, unspecified iron deficiency anemia type VITAMIN D 25 HYDROXY Routine 04/30/2025 12:13 PM EDT Vitamin D deficiency LIPID PANEL WITH REFLEX TO DIRECT LDL Routine 04/30/2025 12:13 PM EDT Routine general medical examination at a health care facility DEPRESSION SCREENING Routine 06/11/2024 HEPATITIS C SCREENING Routine 06/22/2016 HIV SCREENING Routine 06/22/2016 from Last 3 Months or Most Recently Relevant to Health Maintenance Results * US Head Neck Soft Tissue (05/13/2025 3:14 PM EDT) Anatomical Region Laterality Modality Head and Neck Radiographic Nissa ging 05/13/2025 3:48 PM EDT Impressions 05/13/2025 3:50 PM EDT Small thyroid gland. No thyroid nodule. POS - [id number] -------- FINAL REPORT -------- Dictated By: Willow Blevins Dictated Date: 05/13/2025 15:48 ET Assigned Physician: Willow Blevins Reviewed and Electronically Signed By: Willow Blevins Signed Date: 05/13/2025 15:50 ET Workstation ID: [id number] Transcribed By: Self Edit Transcribed Date: 05/13/2025 15:48 ET Narrative 05/13/2025 3:50 PM EDT EXAM: Thyroid ultrasound HISTORY: Possible thyromegaly on physical exam. COMPARISON: None FINDINGS: Thyroid gland is small in size: right lobe measures 3.7 x 1.1 x 1.1 cm, left lobe measures 3.0 x 0.6 x 1.1 cm, and the isthmus measures 0.2 cm in thickness. Thyroid parenchyma appears homogeneous without hypervascularity on color Doppler. No discrete thyroid nodule identified. Procedure Note Willow Blevins MD - 05/13/2025 EXAM: Thyroid ultrasound HISTORY: Possible thyromegaly on physical exam. COMPARISON: None FINDINGS: Thyroid gland is small in size: right lobe measures 3.7 x 1.1 x 1.1 cm,left lobe measures 3.0 x 0.6 x 1.1 cm, and the isthmus measures 0.2 cm inthickness. Thyroid parenchyma appears homogeneous without hypervascularityon color Doppler. No discrete thyroid nodule identified. IMPRESSION: Small thyroid gland. No thyroid nodule. POS - [id number] -------- FINAL REPORT -------- Dictated By: Willow Blevins Dictated Date: 05/13/2025 15:48 ET Assigned Physician: Willow Blevins Reviewed and Electronically Signed By: Felicity, Willow Signed Date: 05/13/2025 15:50 ET Workstation ID: [id number] Transcribed By: Self Edit Transcribed Date: 05/13/2025 15:48 ET us Clementine WISE IMG US PROCEDURES Final Re sult * (ABNORMAL) CBC auto differential (04/30/2025 12:14 PM EDT) [facility] WBC 7.5 4.8 - 10.8 K/mcL LAB HEMETOLOGY METHOD 04/30/2025 2:00 PM EDT [facility] RBC 5.30(H) 3.80 - 4.80 M/mcL LAB HEMETOLOGY METHOD 04/30/2025 2:00 PM EDT [facility] Hemoglobin 15.2 11.5 - 16.0 g/dL LAB HEMETOLOGY METHOD [facility] Hematocrit 46.6 35.0 - 47.0 % LAB HEMETOLOGY METHOD 04/30/2025 2:00 PM EDT [facility] MCV 87.8 79.0 - 98.0 FL LAB HEMETOLOGY METHOD 04/30/2025 2:00 PM EDT [facility] MCH 28.6 27.0 - 32.0 pcg LAB HEMETOLOGY METHOD 04/30/2025 2:[facility] MCHC 32.6 32.0 - 37.0 g/dL LAB HEMETOLOGY METHOD 04/30/2025 2:00 PM EDT [facility] RDW 13.2 11.0 - 15.0 % LAB HEMETOLOGY METHOD 04/30/2025 2:00 [facility] Platelets 295 130 - 400 K/mcL LAB HEMETOLOGY METHOD 04/30/2025 2:00 [facility] MPV 10.5 7.0 - 11.0 FL LAB HEMETOLOGY METHOD 04/30/2025 2:00 PM [facility] NRBC 0.0 <1.0 % LAB HEMETOLOGY METHOD 04/30/2025 2:00 PM [facility] NRBC Absolute 0.00 <0.10 K/mcL LAB HEMETOLOGY METHOD 04/30/2025 2:00 PM [facility] Neutrophils Relative 60.1 % LAB HEMETOLOGY METHOD 04/30/2025 2:00 PM [facility] Lymphocytes Relative 31.6 % LAB HEMETOLOGY METHOD 04/30/2025 2:00 PM [facility] Monocytes Relative 6.0 % LAB HEMETOLOGY METHOD 04/30/2025 2:00 PM [facility] Eosinophils Relative 1.2 % LAB HEMETOLOGY METHOD 04/30/2025 2:00 PM [facility] Basophils Relative 0.8 % LAB HEMETOLOGY METHOD 04/30/2025 2:00 PM [facility] Immature Granulocytes Relative 0.3 % LAB HEMETOLOGY METHOD 04/30/2025 2:00 PM [facility] Neutrophils Absolute 4.50 1.50 - 7.00 K/mcL LAB HEMETOLOGY METHOD 04/30/2025 2:00 PM [facility] Lymphocytes Absolute 2.37 1.00 - 5.00 K/mcL LAB HEMETOLOGY METHOD 04/30/2025 2:00 PM [facility] Monocytes Absolute 0.45 0.20 - 1.00 K/mcL LAB HEMETOLOGY METHOD 04/30/2025 2:00 PM [facility] Eosinophils Absolute 0.09 0.00 - 0.50 K/mcL LAB HEMETOLOGY METHOD 04/30/2025 2:00 PM [facility] Basophils Absolute 0.06 0.00 - 0.20 K/mcL LAB HEMETOLOGY METHOD 04/30/2025 2:00 PM EDT [facility] Immature Granulocytes Absolute 0.02 0.00 - 0.03 K/mcL LAB HEMETOLOGY METHOD 04/30/2025 2:00 PM EDT [facility] Blood Venous blood specimen / Unknown Venipuncture / Unknown 04/30/2025 12:14 PM EDT 04/30/2025 12:14 PM EDT us Clementine WISE LAB BLOOD ORDERABLES Final Result [facility] [address] [place] [address], [place] [phone] * (ABNORMAL) Comprehensive metabolic panel (04/30/2025 12:14 PM EDT) Sodium 138 133 - 145 mmol/L LAB CHEMISTRY METHOD 04/30/2025 4:24 PM [facility] Potassium 3.9 3.5 - 5.5 mmol/L LAB CHEMISTRY METHOD 04/30/2025 4:24 PM [facility] Chloride 107 96 - 110 mmol/L LAB CHEMISTRY METHOD 04/30/2025 4:24 PM [facility] CO2 24 21 - 32 mmol/L LAB CHEMISTRY METHOD 04/30/2025 4:24 PM [facility] Anion Gap 7 3 - 11 LAB CHEMISTRY METHOD 04/30/2025 4:24 PM [facility] Glucose 99 70 - 100 mg/dL LAB CHEMISTRY METHOD 04/30/2025 4:24 PM [facility] BUN 10 5 - 25 mg/dL LAB CHEMISTRY METHOD 04/30/2025 4:24 PM [facility] Creatinine 1.11(H) 0.50 - 1.10 mg/dL LAB CHEMISTRY METHOD 04/30/2025 4:24 PM [facility] eGFR 70 >=60 mL/min/1. 73m2 LAB CHEMISTRY METHOD 04/30/2025 4:24 PM EDT [facility] Comment:Calculation based on the Chronic Kidney Disease Epidemiology Collaboration (CKD-EPI) equation refit without adjustment for race. BUN/Creatinine Ratio 9.0 LAB CHEMISTRY METHOD 04/30/2025 4:24 PM EDT [facility] Calcium 9.7 8.5 - 10.5 mg/dL LAB CHEMISTRY METHOD 04/30/2025 4:24 PM EDT [facility] AST (SGOT) 15 10 - 42 unit/L LAB CHEMISTRY METHOD 04/30/2025 4:24 PM [facility] ALT (SGPT) 42 10 - 60 unit/L LAB CHEMISTRY METHOD 04/30/2025 4:24 PM [facility] Alkaline Phosphatase 47 42 - 121 unit/L LAB CHEMISTRY METHOD 04/30/2025 4:24 PM T [facility] Total Protein 7.7 6.0 - 8.0 g/dL LAB CHEMISTRY METHOD 04/30/2025 4:24 PM [facility] Albumin 4.4 3.2 - 5.0 g/dL LAB CHEMISTRY METHOD 04/30/2025 4:24 PM [facility] Total Bilirubin 0.4 0.0 - 1.4 mg/dL LAB CHEMISTRY METHOD 04/30/2025 4:24 PM [facility] Blood Venous blood specimen / Unknown Venipuncture / Unknown 04/30/2025 12:14 PM EDT 04/30/2025 12:14 PM EDT us Clementine WISE LAB BLOOD ORDERABLES Final Result [facility] [address] [place] [address], [place] [phone] * (ABNORMAL) Lipid panel with reflex to direct LDL (04/30/2025 12:13 PM EDT) Cholesterol 270(H) 0 - 200 mg/dL LAB CHEMISTRY METHOD 04/30/2025 2:45 PM EDT [facility] Triglycerides 187(H) 0 - 150 mg/dL LAB CHEMISTRY METHOD 04/30/2025 2:45 PM EDT [facility] HDL 45 >=40 mg/dL LAB CHEMISTRY METHOD 04/30/2025 2:45 PM EDT [facility] LDL Calculated 188(H) 0 - 100 mg/dL LAB CHEMISTRY METHOD 04/30/2025 2:45 PM EDT [facility] VLDL Cholesterol Alin 37.4 mg/dL LAB CHEMISTRY METHOD 04/30/2025 2:45 PM EDT [facility] Non HDL Chol. (LDL+VLDL) 225(H) <145 mg/dL LAB CHEMISTRY METHOD 04/30/2025 2:45 PM EDT [facility] Chol/HDL Ratio 6.0(H) 0.0 - 4.4 LAB CHEMISTRY METHOD 04/30/2025 2:45 PM EDT [facility] Blood Venous blood specimen / Unknown Venipuncture / Unknown 04/30/2025 12:13 PM EDT 04/30/2025 12:13 PM EDT us Clementine WISE LAB BLOOD ORDERABLES Final Result [facility] [address] [place] [address], * Iron and TIBC (04/30/2025 12:13 PM EDT) Iron 84 40 - 150 mcg/dL LAB CHEMISTRY METHOD 04/30/2025 3:02 PM EDT [facility] Comment:Results verified by repeat testing TIBC 322 250 - 450 mcg/dL LAB CHEMISTRY METHOD 04/30/2025 3:02 PM EDT [facility] Iron Saturation 26 15 - 50 % LAB CHEMISTRY METHOD 04/30/2025 3:02 PM EDT [facility] Blood Venous blood specimen / Unknown Venipuncture / Unknown 04/30/2025 12:13 PM EDT 04/30/2025 12:13 PM EDT Clementine WISE LAB BLOOD ORDERABLES Final Result [facility] [address] [place] [address], [place] [phone] * (ABNORMAL) Vitamin D 25 hydroxy (04/30/2025 12:13 PM EDT) [facility] Vit D, 25-Hydroxy 8.6(L) 30.0 - 80.0 ng/mL LAB CHEMISTRY METHOD 04/30/2025 4:24 PM EDT [facility] Blood Venous blood specimen / Unknown Venipuncture / Unknown 04/30/2025 12:13 PM EDT 04/30/2025 12:13 PM EDT Clementine WISE LAB BLOOD ORDERABLES Final Result Performing Organization Address City/[facility]/ZIP Co de Phone Number [facility] [address] [place] [address], [place] [phone] * Depression Screening (06/11/2024) Depression Screening abstracted Historical Provider HEALTH MAINTENANCE Final Result * HIV Screening (06/22/2016) Pathologist [facility] HIV Screening abstracted Historical Provider HEALTH MAINTENANCE Final Result * Hepatitis C Screening (06/22/2016) Pathologist [facility] Hepatitis C Screening abstracted Historical Provider HEALTH MAINTENANCE Final Result from Last 3 Months or Most Recently Relevant to Health Maintenance Insurance [facility] Care Teams Lumber Planer Relationship Specialty Start Date End Date Meagan Sharpe MD PCP - General Internal Medicine 08/21/15
== END 2025-07-08 16:37 | disposition home or self-care (01) ==
LOC: HO.HSMS 15:16
PROVIDERS: Visit Provider Nurse Practitioner Family
DX: R55 Syncope and collapse (principal); F41.9 Anxiety disorder, unspecified; R40.4 Transient alteration of awareness; G43.009 Migraine without aura, not intractable, without status migrainosus; R93.0 Abnormal findings on diagnostic imaging of skull and head, not elsewhere classified; I95.1 Orthostatic hypotension
CPT/HCPCS: 99214

== ENCOUNTER → 2025-07-08 15:15 | Outpatient (BNVA) | payer OTHER, SELFPAY | PROVIDERS: Visit Provider Nurse Practitioner Family | DX: R55 Syncope and collapse (principal); F41.9 Anxiety disorder, unspecified; R40.4 Transient alteration of awareness; G43.009 Migraine without aura, not intractable, without status migrainosus; R93.0 Abnormal findings on diagnostic imaging of skull and head, not elsewhere classified | CPT/HCPCS: 99212 ==